=== PATIENT | female | born 1965 | race Caucasian/White ===

== ENCOUNTER 2017-03-15 14:30 | Emergency (ER) | payer MEDICARE, MEDICAID ==
[~2017-03-15] VITALS: Ht 160 cm; Wt 80.0 kg
[~2017-03-15 14:30] MED LIST: BIC15 PO; CLOP75TA33 PO; COR25 PO; Furosemide PO; GABA-529 PO; HYDR-4133 PO; IPRA3AMP9 INH; Isosorbide Mononitrate PO; LIP40 PO; LISI-604 PO; NIFE60TA64 PO
[2017-03-15] MEDS ORDERED: ASPIRIN 81MG TABLET PO ONE (14:45)
[2017-03-15] MEDS ORDERED: NITROGLYCERIN 0.4MG TABLET SL SL PRN (14:45)
[2017-03-15 15:09] LABS: BASOPHILS % 1.2 % (0.0-2.0); EOSINOPHILS % 4.3 % (0.0-5.0); HEMOGLOBIN. 12.1 g/dL (12.0-16.0); LYMPHOCYTES % 19.2 % (20.0-50.0); MEAN CORPUSCULAR HEMOGLOBIN 31.6 pg (28.0-32.0); MEAN CORPUSCULAR VOLUME 91.1 fL (81.0-99.0); MONOCYTES % 8.1 % (2.0-8.0); NEUTROPHILS % 67.2 % (40.0-76.0); PLATELET 255 x1000/uL (130-400); RED BLOOD CELL COUNT 3.84 mill/uL (4.2-5.4); RED CELL DISTRIBUTION WIDTH 13.4 % (11.6-14.6)
[2017-03-15 15:15] LABS: INR 1.1; PROTHROMBIN TIME 11.7 sec
[2017-03-15 15:20] LABS: CARBON DIOXIDE 30 mEq/L (21-32); CHLORIDE 103 mEq/L (98-107)
[2017-03-15 15:24] LABS: TROPONIN I < 0.02 ng/mL (0.00-0.04)
[2017-03-15 20:15] VITALS: BP 141/72
== END 2017-03-15 20:22 | disposition home or self-care (01) ==
LOC: ER 15:16
DX: R07.9 Chest pain, unspecified (principal); I12.0 Hypertensive chronic kidney disease with stage 5 chronic kidney disease or end stage renal disease; N18.6 End stage renal disease; Z86.73 Personal history of transient ischemic attack (TIA), and cerebral infarction without residual deficits; Z99.2 Dependence on renal dialysis; Z88.6 Allergy status to analgesic agent
CPT/HCPCS: 36415; 71010; 80053; 84484; 85025; 85610; 93005; 99285

== ENCOUNTER 2019-10-04 06:41 | Inpatient (IN) | payer MEDICARE, MEDICAID ==
[~2019-10-04] VITALS: Ht 154.9 cm; Wt 79.1 kg
[~2019-10-04 06:41] MED LIST changes: +DUONEB3 ML INH; -IPRA3AMP9 INH
[2019-10-04] MEDS ORDERED: VANCOMYCIN 1 G PREMIX 200 ML IV ONE (07:00)
[2019-10-04] MEDS ORDERED: PIPERACILLIN/TAZ 3.375G PREMIX 50 ML IV ONE (07:00)
[2019-10-04 07:15] LABS: CHLORIDE 106 mEq/L (98-107)
[2019-10-04] MEDS ORDERED: PIPERACILLIN/TAZOBACTAM 3.375 G in DEXT 5% WATER 100 ML IV ONE (07:15)
[2019-10-04] MEDS ORDERED: VECURONIUM BROMIDE 10 MG/VIAL IV ONE (07:26)
[2019-10-04] MEDS ORDERED: SODIUM CHLORIDE 0.9% 10ML VIAL ONE (07:26)
[2019-10-04] MEDS ORDERED: ETOMIDATE 2MG/ML 10ML VIAL IV ONE (07:26)
[2019-10-04 07:29] LABS: HEMATOCRIT. 34.2 % (36.0-48.0); HEMOGLOBIN. 10.9 g/dL (12.0-16.0); MEAN CORPUSCULAR HEMOGLOBIN 30.2 pg (28.0-32.0); MEAN CORPUSCULAR VOLUME 94.5 fL (81.0-99.0); MEAN PLATELET VOLUME 9.6 fl (7.4-10.4); PLATELET 298 x1000/uL (130-400); RED BLOOD CELL COUNT 3.62 mill/uL (4.2-5.4); RED CELL DISTRIBUTION WIDTH 16.4 % (11.6-14.6)
[2019-10-04 07:49] LABS: INR 1.1; PROTHROMBIN TIME 11.6 sec (9.6-11.0)
[2019-10-04 08:13] LABS: CLARITY URINE CLEAR (CLEAR); COLOR URINE YELLOW (YELLOW); KETONES URINE NEGATIVE (NEGATIVE); LEUKOCYTE ESTERASE URINE NEGATIVE (NEGATIVE); NITRITE URINE NEGATIVE (NEGATIVE); OCCULT BLOOD URINE 1+ (NEGATIVE); PROTEIN URINE 3+ (NEGATIVE); SPECIFIC GRAVITY URINE 1.015 (1.005-1.030); UROBILINOGEN URINE 0.2 E.U./dL (0.2-1.0)
[2019-10-04 08:17] LABS: BG BASE EXCESS -5.7 mmol/L (-2.0-2.0); BG CARBOXYHEMOGLOBIN 0.9 % (0.5-1.5); BG DEOXYHEMOGLOBIN 1.4 % (0.0-5.0); BG HCO3 ACT 22.5 mmol/L (22.0-26.0); BG METHEMOGLOBIN 0.1 % (0.0-1.5); BG OXYGEN SATURATION 98.6 % (92.0-98.5); BG OXYHEMOGLOBIN 97.6 % (94.0-97.0); BG PCO2 57.3 mmHg (35.0-45.0); BG PH 7.212 (7.350-7.450); BG PO2 177.8 mmHg (75.0-100.0); BG SAMPLE SITE RIGHT BRACHIAL; BG TIDAL VOLUME(mL) 500 mL; BG VENT MODE VENT - A/C; BG VENT RATE 12 set
[2019-10-04 08:35] LABS: PLATELET ESTIMATE NORMAL
[2019-10-04] MEDS: PROPOFOL 10MG/ML 100ML 100 ML IV SCH ×3 (08:50→19:27)
[2019-10-04] MEDS ORDERED: FENTANYL CITRATE/PF 50MCG/ML 2ML VIAL IV ONE (11:15)
[2019-10-04] MEDS ORDERED: ACETAMINOPHEN 650MG SUPP ONE (16:25)
[2019-10-04] MEDS ORDERED: ACETAMINOPHEN 650MG SUPP PR ONE (18:00)
[2019-10-04] MEDS ORDERED: VANCOMYCIN 1 G PREMIX 200 ML IV SCH (18:45)
[2019-10-04] MEDS ORDERED: CITRIC ACID/SODIUM CITRATE SOLN 15ML UDC PO SCH (18:45)
[2019-10-04 19:22] LABS: BG BASE EXCESS -5.8 mmol/L (-2.0-2.0); BG CARBOXYHEMOGLOBIN 0.2 % (0.5-1.5); BG DEOXYHEMOGLOBIN 6.3 % (0.0-5.0); BG FRACTION INSPIRED OXYGEN 80; BG HCO3 ACT 19.2 mmol/L (22.0-26.0); BG METHEMOGLOBIN 0.3 % (0.0-1.5); BG OXYGEN SATURATION 93.7 % (92.0-98.5); BG OXYHEMOGLOBIN 93.2 % (94.0-97.0); BG PCO2 35.6 mmHg (35.0-45.0); BG PH 7.349 (7.350-7.450); BG PO2 70.6 mmHg (75.0-100.0); BG SAMPLE SITE RIGHT RADIAL; BG TIDAL VOLUME(mL) 500 mL; BG VENT MODE VENT - A/C; BG VENT RATE 14 set
[2019-10-04] MEDS ORDERED: FUROSEMIDE 20MG/2ML VIAL IVP NR (20:15)
[2019-10-04] MEDS ORDERED: PIPERACILLIN/TAZ 3.375G PREMIX 50 ML IV NR (20:15)
[2019-10-04 23:50] VITALS: BP 140/66
[2019-10-05] VITALS (93 sets, daily range): BP systolic 141–190; BP diastolic 56–86
[2019-10-05] MEDS ORDERED: CARVEDILOL 12.5MG TABLET PO NR
[2019-10-05 01:55] LABS: BG BASE EXCESS -6.1 mmol/L (-2.0-2.0); BG CARBOXYHEMOGLOBIN 0.6 % (0.5-1.5); BG DEOXYHEMOGLOBIN 1.8 % (0.0-5.0); BG FRACTION INSPIRED OXYGEN 100; BG HCO3 ACT 19.3 mmol/L (22.0-26.0); BG OXYGEN SATURATION 98.2 % (92.0-98.5); BG OXYHEMOGLOBIN 97.6 % (94.0-97.0); BG PCO2 37.8 mmHg (35.0-45.0); BG PH 7.326 (7.350-7.450); BG SAMPLE SITE RIGHT RADIAL; BG TIDAL VOLUME(mL) 500 mL; BG TOTAL HEMOGLOBIN 9.7 g/dL (12.0-18.0); BG VENT MODE VENT - A/C; BG VENT RATE 20 set
[2019-10-05] MEDS: PROPOFOL 10MG/ML 100ML 100 ML IV PRN ×5 (02:56→17:01)
[2019-10-05] MEDS: PIPERACILLIN/TAZOBACTAM 2.25 G in DEXTROSE 5% WATER 50 ML IV SCH ×2 (03:05→16:55)
[2019-10-05] MEDS: SODIUM CHLORIDE 0.9% INJ 3ML FLUSH IVF SCH ×3 (05:16→22:14)
[2019-10-05] MEDS ORDERED: PIPERACILLIN/TAZ 3.375G PREMIX 50 ML IV SCH (06:00)
[2019-10-05 06:05] LABS: HEMOGLOBIN. 9.1 g/dL (12.0-16.0); MEAN CORPUSCULAR HEMOGLOBIN 30.3 pg (28.0-32.0); MEAN CORPUSCULAR VOLUME 93.8 fL (81.0-99.0); PLATELET 187 x1000/uL (130-400); RED BLOOD CELL COUNT 2.99 mill/uL (4.2-5.4); RED CELL DISTRIBUTION WIDTH 15.9 % (11.6-14.6)
[2019-10-05] MEDS ORDERED: FUROSEMIDE 20MG/2ML VIAL IVP SCH (07:15)
[2019-10-05] MEDS: NITROGLYCERIN 0.2MG/HR PATCH TOP SCH (09:00)
[2019-10-05] MEDS: LISINOPRIL 20MG TABLET PO SCH ×2 (09:00→21:51)
[2019-10-05] MEDS: HYDRALAZINE HCL 10MG TABLET PO SCH ×2 (09:00→21:50)
[2019-10-05] MEDS: NIFEDIPINE XL 90MG TAB PO SCH (09:00)
[2019-10-05 09:27] LABS: PLATELET ESTIMATE NORMAL
[2019-10-05] MEDS: IPRATROPIUM/ALBUTEROL 0.5-3(2.5)MG/3ML NEB HHN PRN ×3 (09:33→16:19)
[2019-10-05] MEDS: PANTOPRAZOLE SODIUM 40 MG/VIAL IV SCH (09:35)
[2019-10-05] MEDS: CLOPIDOGREL 75MG TABLET PO SCH (09:35)
[2019-10-05 12:12] LABS: PHOSPHORUS 6.9 mg/dL (2.5-4.9)
[2019-10-05] MEDS: METHYLPREDNISOLONE SOD SUCC 40 MG/ML VIAL IV SCH ×2 (12:30→22:14)
[2019-10-05] MEDS: ACETAMINOPHEN 650MG/20.3ML UDC PO PRN (13:56)
[2019-10-05] MEDS: CLONIDINE 0.2MG TABLET PO PRN (17:35)
[2019-10-05 18:19] LABS: BG BASE EXCESS -2.9 mmol/L (-2.0-2.0); BG CARBOXYHEMOGLOBIN 0.3 % (0.5-1.5); BG FRACTION INSPIRED OXYGEN 100; BG HCO3 ACT 20.5 mmol/L (22.0-26.0); BG METHEMOGLOBIN 0.1 % (0.0-1.5); BG OXYHEMOGLOBIN 98.6 % (94.0-97.0); BG PCO2 30.9 mmHg (35.0-45.0); BG PH 7.439 (7.350-7.450); BG PO2 196.2 mmHg (75.0-100.0); BG SAMPLE SITE RIGHT BRACHIAL; BG TIDAL VOLUME(mL) 500 mL; BG VENT MODE VENT - A/C; BG VENT RATE 20 set
[2019-10-05 20:26] LABS: *AMPHETAMINES SCREEN URINE NEGATIVE (NEGATIVE); *BARBITURATES SCREEN URINE NEGATIVE (NEGATIVE); *BENZODIAZEPINES SCREEN URINE NEGATIVE (NEGATIVE); *COCAINE SCREEN URINE NEGATIVE (NEGATIVE); METHADONE URINE SCREEN NEGATIVE (NEGATIVE); OPIATES URINE SCREEN NEGATIVE (NEGATIVE)
[2019-10-05 20:27] LABS: CANNABINOID URINE SCREEN NEGATIVE (NEGATIVE); PHENCYCLIDINE URINE SCREEN NEGATIVE (NEGATIVE)
[2019-10-05] MEDS: IPRATROPIUM/ALBUTEROL 0.5-3(2.5)MG/3ML NEB HHN SCH (20:28)
[2019-10-05] MEDS ORDERED: FUROSEMIDE 40MG TABLET PO SCH (21:00)
[2019-10-05] MEDS ORDERED: EPOETIN ALFA 4000UNITS/ML VIAL SUBCUT PRN (21:00)
[2019-10-05] MEDS ORDERED: VANCOMYCIN 1 G PREMIX 200 ML IV SCH (21:00)
[2019-10-05] MEDS: ATORVASTATIN CALCIUM 40MG TABLET PO SCH (21:50)
[2019-10-05] MEDS: GABAPENTIN 100MG CAPSULE PO SCH (21:51)
[2019-10-06] VITALS (93 sets, daily range): BP systolic 160–194; BP diastolic 58–108
[2019-10-06] MEDS: CLONIDINE 0.2MG TABLET PO PRN (00:14)
[2019-10-06] MEDS: PROPOFOL 10MG/ML 100ML 100 ML IV PRN ×3 (01:16→09:59)
[2019-10-06] MEDS: IPRATROPIUM/ALBUTEROL 0.5-3(2.5)MG/3ML NEB HHN SCH ×4 (01:57→20:28)
[2019-10-06] MEDS: PIPERACILLIN/TAZOBACTAM 2.25 G in DEXTROSE 5% WATER 50 ML IV SCH ×2 (02:53→13:54)
[2019-10-06 05:44] LABS: HEMOGLOBIN. 10.5 g/dL (12.0-16.0); MEAN CORPUSCULAR HEMOGLOBIN 31.1 pg (28.0-32.0); MEAN CORPUSCULAR VOLUME 91.7 fL (81.0-99.0); MEAN PLATELET VOLUME 9.6 fl (7.4-10.4); PLATELET 193 x1000/uL (130-400); RED BLOOD CELL COUNT 3.38 mill/uL (4.2-5.4); RED CELL DISTRIBUTION WIDTH 15.8 % (11.6-14.6)
[2019-10-06 05:46] LABS: PHOSPHORUS 7.1 mg/dL (2.5-4.9)
[2019-10-06] MEDS: SODIUM CHLORIDE 0.9% INJ 3ML FLUSH IVF SCH ×3 (06:48→21:59)
[2019-10-06] MEDS: METHYLPREDNISOLONE SOD SUCC 40 MG/ML VIAL IV SCH ×3 (06:48→21:59)
[2019-10-06] MEDS: NIFEDIPINE XL 90MG TAB PO SCH (08:05)
[2019-10-06] MEDS: CLONIDINE HCL 0.2MG/24HR PATCH TD SCH ×3 (08:05→10:00)
[2019-10-06] MEDS: PANTOPRAZOLE SODIUM 40 MG/VIAL IV SCH (08:17)
[2019-10-06] MEDS: CLOPIDOGREL 75MG TABLET PO SCH (08:18)
[2019-10-06] MEDS: HYDRALAZINE HCL 10MG TABLET PO SCH (08:18)
[2019-10-06] MEDS: FOLIC ACID/VITAMIN B COMP W-C TABLET NG SCH (08:18)
[2019-10-06] MEDS: LISINOPRIL 20MG TABLET PO SCH ×2 (08:19→21:58)
[2019-10-06] MEDS: NITROGLYCERIN 0.2MG/HR PATCH TOP SCH (08:19)
[2019-10-06 08:27] LABS: BG BASE EXCESS -10.7 mmol/L (-2.0-2.0); BG CARBOXYHEMOGLOBIN 0.3 % (0.5-1.5); BG DEOXYHEMOGLOBIN 1.8 % (0.0-5.0); BG FRACTION INSPIRED OXYGEN 60; BG HCO3 ACT 11.9 mmol/L (22.0-26.0); BG METHEMOGLOBIN 0.3 % (0.0-1.5); BG OXYGEN SATURATION 98.2 % (92.0-98.5); BG OXYHEMOGLOBIN 97.6 % (94.0-97.0); BG PCO2 18.7 mmHg (35.0-45.0); BG PH 7.422 (7.350-7.450); BG PO2 128.1 mmHg (75.0-100.0); BG SAMPLE SITE RIGHT BRACHIAL; BG TIDAL VOLUME(mL) 500 mL; BG TOTAL HEMOGLOBIN 9.9 g/dL (12.0-18.0); BG VENT MODE VENT - A/C; BG VENT RATE 20 set
[2019-10-06] MEDS ORDERED: ENOXAPARIN 30MG/0.3ML SYR SUBCUT SCH (09:00)
[2019-10-06] MEDS ORDERED: FENTANYL CITRATE/PF 500 MCG in SODIUM CHLORIDE 0.9% 40 ML IV PRN (09:15)
[2019-10-06] MEDS ORDERED: MIDAZOLAM HCL 50 MG in DEXTROSE 5% WATER 40 ML IV PRN (09:15)
[2019-10-06] MEDS ORDERED: HYDRALAZINE HCL 25MG TABLET PO SCH ×2 (10:00→15:00)
[2019-10-06 10:37] LABS: BG BASE EXCESS -4.4 mmol/L (-2.0-2.0); BG CARBOXYHEMOGLOBIN 0.3 % (0.5-1.5); BG DEOXYHEMOGLOBIN 8.3 % (0.0-5.0); BG FRACTION INSPIRED OXYGEN 40; BG HCO3 ACT 20.4 mmol/L (22.0-26.0); BG METHEMOGLOBIN 0.4 % (0.0-1.5); BG OXYGEN SATURATION 91.6 % (92.0-98.5); BG PCO2 36.4 mmHg (35.0-45.0); BG PH 7.366 (7.350-7.450); BG PO2 69.4 mmHg (75.0-100.0); BG PRESSURE SUPPORT 10; BG SAMPLE SITE RIGHT BRACHIAL; BG TIDAL VOLUME(mL) 400 mL; BG TOTAL HEMOGLOBIN 11.8 g/dL (12.0-18.0); BG VENT MODE VENT - SIMV; BG VENT RATE 10 set
[2019-10-06] MEDS: HYDROCODONE/ACETAMINOPHEN 5/325MG TABLET PO PRN (11:16)
[2019-10-06] MEDS ORDERED: LIDOCAINE HCL/PF 1% 2ML VIAL ONE (11:28)
[2019-10-06] MEDS: HYDRALAZINE 20MG/ML VIAL IV PRN (14:09)
[2019-10-06] MEDS ORDERED: MORPHINE SULFATE 2 MG/ML CPJ (NOT FOR IM USE) IV NR (14:45)
[2019-10-06] MEDS ORDERED: MORPHINE SULFATE 2 MG/ML CPJ (NOT FOR IM USE) IV PRN (14:45)
[2019-10-06 14:50] LABS: PLATELET ESTIMATE NORMAL
[2019-10-06] MEDS: MORPHINE SULFATE 2 MG/ML CPJ (NOT FOR IM USE) IV PRN (14:57)
[2019-10-06 17:54] LABS: BG BASE EXCESS -3.8 mmol/L (-2.0-2.0); BG CARBOXYHEMOGLOBIN 0.7 % (0.5-1.5); BG DEOXYHEMOGLOBIN 5.2 % (0.0-5.0); BG FRACTION INSPIRED OXYGEN 35; BG HCO3 ACT 20.9 mmol/L (22.0-26.0); BG METHEMOGLOBIN 0.3 % (0.0-1.5); BG OXYGEN SATURATION 94.7 % (92.0-98.5); BG OXYHEMOGLOBIN 93.8 % (94.0-97.0); BG PCO2 36.8 mmHg (35.0-45.0); BG PH 7.372 (7.350-7.450); BG PO2 78.6 mmHg (75.0-100.0); BG PRESSURE SUPPORT 10; BG SAMPLE SITE RIGHT BRACHIAL; BG TOTAL HEMOGLOBIN 12.1 g/dL (12.0-18.0); BG VENT MODE VENT - CPAP
[2019-10-06] MEDS ORDERED: HYDRALAZINE 20MG/ML VIAL IV NR (18:00)
[2019-10-06 21:27] LABS: BG BASE EXCESS -3.3 mmol/L (-2.0-2.0); BG CARBOXYHEMOGLOBIN 0.6 % (0.5-1.5); BG DEOXYHEMOGLOBIN 6.4 % (0.0-5.0); BG FRACTION INSPIRED OXYGEN 35; BG HCO3 ACT 21.5 mmol/L (22.0-26.0); BG METHEMOGLOBIN 0.3 % (0.0-1.5); BG OXYGEN SATURATION 93.5 % (92.0-98.5); BG OXYHEMOGLOBIN 92.7 % (94.0-97.0); BG PCO2 37.8 mmHg (35.0-45.0); BG PH 7.373 (7.350-7.450); BG PO2 73.2 mmHg (75.0-100.0); BG SAMPLE SITE LEFT RADIAL; BG TOTAL HEMOGLOBIN 12.2 g/dL (12.0-18.0); BG VENT MODE MASK - AEROSOL
[2019-10-06] MEDS: ATORVASTATIN CALCIUM 40MG TABLET PO SCH (21:54)
[2019-10-06] MEDS: HYDRALAZINE HCL 50MG TABLET PO SCH (21:56)
[2019-10-06] MEDS: GABAPENTIN 100MG CAPSULE PO SCH (21:58)
[2019-10-07] VITALS (64 sets, daily range): BP systolic 109–188; BP diastolic 44–101
[2019-10-07] MEDS: IPRATROPIUM/ALBUTEROL 0.5-3(2.5)MG/3ML NEB HHN SCH ×4 (01:15→20:05)
[2019-10-07] MEDS: PIPERACILLIN/TAZOBACTAM 2.25 G in DEXTROSE 5% WATER 50 ML IV SCH ×2 (03:36→14:48)
[2019-10-07] MEDS: HYDRALAZINE 20MG/ML VIAL IV PRN (04:36)
[2019-10-07 05:41] LABS: HEMATOCRIT. 34.2 % (36.0-48.0); MEAN CORPUSCULAR HEMOGLOBIN 29.9 pg (28.0-32.0); MEAN CORPUSCULAR VOLUME 92.8 fL (81.0-99.0); MEAN PLATELET VOLUME 9.5 fl (7.4-10.4); PLATELET 259 x1000/uL (130-400); RED BLOOD CELL COUNT 3.69 mill/uL (4.2-5.4)
[2019-10-07] MEDS: METHYLPREDNISOLONE SOD SUCC 40 MG/ML VIAL IV SCH ×2 (06:33→14:48)
[2019-10-07] MEDS: HYDRALAZINE HCL 50MG TABLET PO SCH ×3 (06:33→21:34)
[2019-10-07] MEDS: SODIUM CHLORIDE 0.9% INJ 3ML FLUSH IVF SCH ×3 (06:34→21:34)
[2019-10-07] MEDS: NIFEDIPINE XL 90MG TAB PO SCH (09:00)
[2019-10-07] MEDS: FOLIC ACID/VITAMIN B COMP W-C TABLET NG SCH (09:17)
[2019-10-07] MEDS: CLOPIDOGREL 75MG TABLET PO SCH (09:17)
[2019-10-07] MEDS: PANTOPRAZOLE SODIUM 40 MG/VIAL IV SCH (09:17)
[2019-10-07] MEDS: LISINOPRIL 20MG TABLET PO SCH ×2 (09:17→21:34)
[2019-10-07 09:28] LABS: BG CARBOXYHEMOGLOBIN 0.6 % (0.5-1.5); BG DEOXYHEMOGLOBIN 4.4 % (0.0-5.0); BG FRACTION INSPIRED OXYGEN 36; BG HCO3 ACT 18.9 mmol/L (22.0-26.0); BG METHEMOGLOBIN 0.3 % (0.0-1.5); BG OXYGEN SATURATION 95.6 % (92.0-98.5); BG OXYHEMOGLOBIN 94.7 % (94.0-97.0); BG PCO2 35.1 mmHg (35.0-45.0); BG PH 7.349 (7.350-7.450); BG PO2 87.8 mmHg (75.0-100.0); BG SAMPLE SITE RIGHT RADIAL; BG TOTAL HEMOGLOBIN 11.1 g/dL (12.0-18.0); BG VENT MODE NASAL CANNULA
[2019-10-07 09:47] LABS: PLATELET ESTIMATE NORMAL
[2019-10-07] MEDS: NITROGLYCERIN 0.2MG/HR PATCH TOP SCH (09:59)
[2019-10-07] MEDS ORDERED: HYDRALAZINE 20MG/ML VIAL IV NR (10:00)
[2019-10-07] MEDS: BLOOD SUGAR DIAGNOSTIC STRIP TEST SCH ×4 (12:02→20:56)
[2019-10-07] MEDS: AMLODIPINE 5MG TABLET PO SCH (12:15)
[2019-10-07] MEDS ORDERED: HEPARIN SODIUM 1,000 UNIT/1ML VIAL IV SCH (13:30)
[2019-10-07] MEDS: ACETAMINOPHEN 650MG/20.3ML UDC PO PRN (17:09)
[2019-10-07] MEDS ORDERED: DEXTROSE 50% WATER 50ML SYRINGE IV PRN ×2 (17:45→18:00)
[2019-10-07] MEDS ORDERED: INSULIN LISPRO 100 UNITS/ML SUBCUT SCH (17:45)
[2019-10-07] MEDS ORDERED: BLOOD SUGAR DIAGNOSTIC STRIP TEST SCH (21:00)
[2019-10-07] MEDS: GABAPENTIN 100MG CAPSULE PO SCH (21:33)
[2019-10-07] MEDS: ATORVASTATIN CALCIUM 40MG TABLET PO SCH (21:33)
[2019-10-07] MEDS: INSULIN LISPRO 100 UNITS/ML SUBCUT SCH (21:35)
[2019-10-07] MEDS ORDERED: INSULIN GLARGINE UD 100 UNITS/ML SYR SUBCUT SCH (22:00)
[2019-10-08] VITALS (23 sets, daily range): BP systolic 98–165; BP diastolic 53–140
[2019-10-08] MEDS: METHYLPREDNISOLONE SOD SUCC 40 MG/ML VIAL IV SCH ×2 (00:57→14:25)
[2019-10-08] MEDS: PIPERACILLIN/TAZOBACTAM 2.25 G in DEXTROSE 5% WATER 50 ML IV SCH ×2 (01:00→14:25)
[2019-10-08] MEDS: IPRATROPIUM/ALBUTEROL 0.5-3(2.5)MG/3ML NEB HHN SCH ×4 (02:03→19:54)
[2019-10-08] MEDS: SODIUM CHLORIDE 0.9% INJ 3ML FLUSH IVF SCH ×2 (05:13→14:25)
[2019-10-08] MEDS: BLOOD SUGAR DIAGNOSTIC STRIP TEST SCH ×4 (06:04→21:00)
[2019-10-08] MEDS: INSULIN LISPRO 100 UNITS/ML SUBCUT SCH ×4 (06:10→21:00)
[2019-10-08] MEDS: MORPHINE SULFATE 2 MG/ML CPJ (NOT FOR IM USE) IV PRN (06:10)
[2019-10-08] MEDS: HYDRALAZINE HCL 50MG TABLET PO SCH ×2 (06:10→14:00)
[2019-10-08] MEDS: SEVELAMER CARBONATE 800 MG TABLET PO SCH ×3 (06:11→16:58)
[2019-10-08 06:12] LABS: HEMATOCRIT. 36.4 % (36.0-48.0); HEMOGLOBIN. 11.8 g/dL (12.0-16.0); MEAN CORPUSCULAR HEMOGLOBIN 30.3 pg (28.0-32.0); MEAN CORPUSCULAR VOLUME 93.2 fL (81.0-99.0); MEAN PLATELET VOLUME 9.6 fl (7.4-10.4); PLATELET 240 x1000/uL (130-400); RED CELL DISTRIBUTION WIDTH 15.6 % (11.6-14.6)
[2019-10-08] MEDS ORDERED: PAROXETINE HCL 10MG TABLET PO SCH (09:00)
[2019-10-08] MEDS: NIFEDIPINE XL 90MG TAB PO SCH (09:00)
[2019-10-08] MEDS: CLOPIDOGREL 75MG TABLET PO SCH (09:09)
[2019-10-08] MEDS: PANTOPRAZOLE SODIUM 40 MG/VIAL IV SCH (09:09)
[2019-10-08] MEDS: LISINOPRIL 20MG TABLET PO SCH ×2 (09:10→21:00)
[2019-10-08] MEDS: FOLIC ACID/VITAMIN B COMP W-C TABLET NG SCH (09:10)
[2019-10-08 09:32] LABS: BG BASE EXCESS -7.1 mmol/L (-2.0-2.0); BG CARBOXYHEMOGLOBIN 1.4 % (0.5-1.5); BG DEOXYHEMOGLOBIN 4.4 % (0.0-5.0); BG FRACTION INSPIRED OXYGEN 28; BG HCO3 ACT 17.2 mmol/L (22.0-26.0); BG METHEMOGLOBIN 0.1 % (0.0-1.5); BG OXYGEN SATURATION 95.5 % (92.0-98.5); BG OXYHEMOGLOBIN 94.1 % (94.0-97.0); BG PCO2 30.7 mmHg (35.0-45.0); BG PH 7.365 (7.350-7.450); BG PO2 82.3 mmHg (75.0-100.0); BG SAMPLE SITE RIGHT RADIAL; BG TOTAL HEMOGLOBIN 11.7 g/dL (12.0-18.0); BG VENT MODE NASAL CANNULA
[2019-10-08] MEDS: HYDROCODONE/ACETAMINOPHEN 5/325MG TABLET PO PRN (10:31)
[2019-10-08 11:10] LABS: PLATELET ESTIMATE NORMAL
[2019-10-08] MEDS: AMLODIPINE 5MG TABLET PO SCH (11:27)
[2019-10-08] MEDS: NITROGLYCERIN 0.2MG/HR PATCH TOP SCH (11:28)
[2019-10-08] MEDS: CLONIDINE HCL 0.2MG/24HR PATCH TD SCH (11:28)
[2019-10-08] MEDS ORDERED: LISI-604 MT (13:42)
[2019-10-08] MEDS ORDERED: LEVO500T2 PO (13:42)
[2019-10-08] MEDS ORDERED: P20 MT (13:42)
[2019-10-08] MEDS ORDERED: ALBU05 NEB (13:42)
[2019-10-08] MEDS ORDERED: NIFE90TA2 MT (13:42)
[2019-10-08] MEDS ORDERED: AMLO5TAB4 PO (13:42)
[2019-10-08] MEDS ORDERED: HYDR-4135 MT (13:42)
[2019-10-08] MEDS ORDERED: CLOP75TA4 MT (13:42)
[2019-10-08] MEDS ORDERED: COR3 MT (13:42)
[2019-10-08 14:29] LABS: BG BASE EXCESS -4.9 mmol/L (-2.0-2.0); BG CARBOXYHEMOGLOBIN 1.1 % (0.5-1.5); BG DEOXYHEMOGLOBIN 14.6 % (0.0-5.0); BG FRACTION INSPIRED OXYGEN 21; BG HCO3 ACT 20.1 mmol/L (22.0-26.0); BG OXYGEN SATURATION 85.2 % (92.0-98.5); BG OXYHEMOGLOBIN 84.3 % (94.0-97.0); BG PCO2 36.9 mmHg (35.0-45.0); BG PH 7.354 (7.350-7.450); BG SAMPLE SITE RIGHT RADIAL; BG TOTAL HEMOGLOBIN 12.4 g/dL (12.0-18.0); BG VENT MODE ROOM AIR
[2019-10-08] MEDS: GABAPENTIN 100MG CAPSULE PO SCH (21:00)
[2019-10-08] MEDS: ATORVASTATIN CALCIUM 40MG TABLET PO SCH (21:00)
== END 2019-10-08 20:40 | disposition home health service (06) | DRG 208 ==
LOC: ER 07:09 → EDBEDREQTM 09:38 → EDBEDREQ 09:38 → ENRESERV 23:03 → MICUNO 23:43
PROVIDERS: ADMIT Internal Medicine; ATTEND Internal Medicine
PROC: 5A1945Z Respiratory Ventilation, 24-96 Consecutive Hours (ICD-10-PCS; principal; 2019-10-04)
PROC: 0BH17EZ Insertion of Endotracheal Airway into Trachea, Via Natural or Artificial Opening (ICD-10-PCS; 2019-10-04)
PROC: 5A09357 Assistance with Respiratory Ventilation, Less than 24 Consecutive Hours, Continuous Positive Airway Pressure (ICD-10-PCS; 2019-10-04)
PROC: 5A1D70Z Performance of Urinary Filtration, Intermittent, Less than 6 Hours Per Day (ICD-10-PCS; 2019-10-05)
PROC: 5A1D70Z Performance of Urinary Filtration, Intermittent, Less than 6 Hours Per Day (ICD-10-PCS; 2019-10-07)
DX: J96.01 Acute respiratory failure with hypoxia (principal); N18.6 End stage renal disease; G92 Toxic encephalopathy; J69.0 Pneumonitis due to inhalation of food and vomit; N39.0 Urinary tract infection, site not specified; I13.2 Hypertensive heart and chronic kidney disease with heart failure and with stage 5 chronic kidney disease, or end stage renal disease; I50.30 Unspecified diastolic (congestive) heart failure; I42.9 Cardiomyopathy, unspecified; N17.9 Acute kidney failure, unspecified; D63.1 Anemia in chronic kidney disease; E11.22 Type 2 diabetes mellitus with diabetic chronic kidney disease; E78.5 Hyperlipidemia, unspecified; D72.829 Elevated white blood cell count, unspecified; E11.319 Type 2 diabetes mellitus with unspecified diabetic retinopathy without macular edema; E11.51 Type 2 diabetes mellitus with diabetic peripheral angiopathy without gangrene; R59.0 Localized enlarged lymph nodes; E21.1 Secondary hyperparathyroidism, not elsewhere classified; F41.9 Anxiety disorder, unspecified; F32.9 Major depressive disorder, single episode, unspecified; H54.8 Legal blindness, as defined in USA; J44.9 Chronic obstructive pulmonary disease, unspecified; Z79.02 Long term (current) use of antithrombotics/antiplatelets; Z91.19 Patient's noncompliance with other medical treatment and regimen; Z99.2 Dependence on renal dialysis; Z88.6 Allergy status to analgesic agent; Z79.899 Other long term (current) drug therapy; Z78.1 Physical restraint status
CPT/HCPCS: 36415; 36600; 71045; 71250; 78580; 80048; 80053; 80061; 80202; 80305; 81003; 82140; 82375; 82805; 82962; 83036; 83605; 83735; 83880; 84100; 84145; 84443; 84478; 84484; 85025; 86850; 86900; 87070; 87804; 92610; 93005; 93306; 94002; 94003; 94640; 94660; 97162; 97530; 99291; C9113; J0360; J0885; J1644; J1815; J2250; J2270; J2543; J2704; J2920; J3010; J3370; J3490; J7060

== ENCOUNTER 2021-04-07 19:09 | Inpatient (IN) | payer MEDICARE, MEDICAID ==
[~2021-04-07] VITALS: Ht 167.6 cm; Wt 76.7 kg
[~2021-04-07 19:09] MED LIST changes: +ALBU05 NEB; +AMLO5TAB4 PO; +CLOP75TA4 MT; -COR25 PO; +COR3 MT; -DUONEB3 ML INH; -Furosemide PO; -HYDR-4133 PO; +HYDR-4135 MT; -Isosorbide Mononitrate PO; +LEVO500T2 PO; -LISI-604 PO; +LISI20TA31 MT; +LISI20TA31 PO; +NIFE90TA2 MT; +P20 MT
[2021-04-07 20:54] LABS: BASOPHILS % 0.6 % (0.0-2.0); EOSINOPHILS % 1.9 % (0.0-5.0); HEMATOCRIT. 30.1 % (36.0-48.0); HEMOGLOBIN. 9.9 g/dL (12.0-16.0); MEAN CORPUSCULAR HEMOGLOBIN 29.1 pg (28.0-32.0); MEAN CORPUSCULAR VOLUME 88.6 fL (81.0-99.0); MEAN PLATELET VOLUME 9.6 fl (7.4-10.4); MONOCYTES % 7.6 % (2.0-8.0); NEUTROPHILS % 77.9 % (40.0-76.0); PLATELET 145 x1000/uL (130-400); RED CELL DISTRIBUTION WIDTH 15.7 % (11.6-14.6)
[2021-04-07 20:56] LABS: CHLORIDE 100 mEq/L (98-107)
[2021-04-08] MEDS ORDERED: HYDROCODONE/ACETAMINOPHEN 10/325MG TABLET PO PRN (05:30)
[2021-04-08] MEDS ORDERED: PAROXETINE HCL 10MG TABLET PO PRN (05:30)
[2021-04-08] MEDS ORDERED: BACLOFEN 10MG TABLET PO PRN (05:30)
[2021-04-08] MEDS ORDERED: NALOXONE HCL 0.4MG/ML VIAL IV PRN (05:30)
[2021-04-08] MEDS ORDERED: ACETAMINOPHEN 325MG TABLET PO PRN (10:30)
[2021-04-08] MEDS ORDERED: DEXTROSE 50% WATER 50ML SYRINGE IV PRN (10:30)
[2021-04-08] MEDS ORDERED: ONDANSETRON HCL 4MG/2ML INJ IV PRN (10:30)
[2021-04-08] MEDS: AMLODIPINE 10MG TABLET PO SCH (11:52)
[2021-04-08] MEDS: BLOOD SUGAR DIAGNOSTIC STRIP TEST SCH ×3 (13:00→20:29)
[2021-04-08] MEDS: INSULIN LISPRO 100 UNITS/ML SUBCUT SCH ×3 (13:20→21:00)
[2021-04-08 16:00] VITALS: BP 161/53
[2021-04-08 19:32] VITALS: BP 161/53
[2021-04-08 20:00] VITALS: BP 148/63
[2021-04-09] VITALS: BP 168/55
[2021-04-09 04:00] VITALS: BP 147/55
[2021-04-09] MEDS: BLOOD SUGAR DIAGNOSTIC STRIP TEST SCH (06:29)
[2021-04-09 06:36] LABS: BASOPHILS % 0.7 % (0.0-2.0); EOSINOPHILS % 2.9 % (0.0-5.0); HEMATOCRIT. 31.3 % (36.0-48.0); LYMPHOCYTES % 19.2 % (20.0-50.0); MEAN CORPUSCULAR HEMOGLOBIN 28.6 pg (28.0-32.0); MEAN CORPUSCULAR VOLUME 89.7 fL (81.0-99.0); MEAN PLATELET VOLUME 10.3 fl (7.4-10.4); NEUTROPHILS % 68.2 % (40.0-76.0); PLATELET 142 x1000/uL (130-400); RED BLOOD CELL COUNT 3.49 mill/uL (4.2-5.4); RED CELL DISTRIBUTION WIDTH 15.5 % (11.6-14.6)
[2021-04-09] MEDS: INSULIN LISPRO 100 UNITS/ML SUBCUT SCH (07:42)
[2021-04-09 08:00] VITALS: BP 122/65
[2021-04-09] MEDS: AMLODIPINE 10MG TABLET PO SCH (08:21)
[2021-04-09] MEDS ORDERED: LOSARTAN POTASSIUM 100 MG TABLET PO SCH (09:00)
[2021-04-09 10:19] VITALS: BP 125/42
[2021-04-09 12:00] VITALS: BP 130/49
== END 2021-04-09 13:10 | disposition home or self-care (01) | DRG 551 ==
LOC: ER 19:26 → EDBEDREQTM 04-08 02:30 → EDBEDREQDT 04-08 02:30 → EDBEDREQ 04-08 02:30 → MICUSO 04-08 10:26 → 6EST 04-08 15:58
PROVIDERS: ADMIT Internal Medicine; ATTEND Internal Medicine
DX: M51.36 Other intervertebral disc degeneration, lumbar region (principal); N18.6 End stage renal disease; I12.0 Hypertensive chronic kidney disease with stage 5 chronic kidney disease or end stage renal disease; N25.81 Secondary hyperparathyroidism of renal origin; M54.41 Lumbago with sciatica, right side; M54.42 Lumbago with sciatica, left side; M48.061 Spinal stenosis, lumbar region without neurogenic claudication; E11.22 Type 2 diabetes mellitus with diabetic chronic kidney disease; G89.29 Other chronic pain; E11.319 Type 2 diabetes mellitus with unspecified diabetic retinopathy without macular edema; H93.A1 Pulsatile tinnitus, right ear; E11.42 Type 2 diabetes mellitus with diabetic polyneuropathy; E78.5 Hyperlipidemia, unspecified; F32.9 Major depressive disorder, single episode, unspecified; D63.8 Anemia in other chronic diseases classified elsewhere; Z99.2 Dependence on renal dialysis; Z86.73 Personal history of transient ischemic attack (TIA), and cerebral infarction without residual deficits; Z88.8 Allergy status to other drugs, medicaments and biological substances; Z79.899 Other long term (current) drug therapy; H54.7 Unspecified visual loss
CPT/HCPCS: 36415; 70551; 71045; 72141; 72148; 80048; 80053; 82962; 83880; 84484; 85025; 93005; 99285

== ENCOUNTER 2021-05-24 17:38 | Inpatient (IN) | payer MEDICARE, MEDICAID ==
[~2021-05-24] VITALS: Ht 165.1 cm; Wt 72.6 kg
[~2021-05-24 17:38] MED LIST changes: +CLOP-31 MT; -CLOP75TA4 MT
[2021-05-24 23:06] LABS: BASOPHILS % 0.7 % (0.0-2.0); EOSINOPHILS % 2.7 % (0.0-5.0); HEMATOCRIT. 21.7 % (36.0-48.0); LYMPHOCYTES % 13.5 % (20.0-50.0); MEAN CORPUSCULAR HEMOGLOBIN 31.7 pg (28.0-32.0); MEAN CORPUSCULAR VOLUME 98.4 fL (81.0-99.0); MEAN PLATELET VOLUME 9.5 fl (7.4-10.4); NEUTROPHILS % 74.1 % (40.0-76.0); PLATELET 205 x1000/uL (130-400); RED BLOOD CELL COUNT 2.21 mill/uL (4.2-5.4); RED CELL DISTRIBUTION WIDTH 15.7 % (11.6-14.6)
[2021-05-24 23:13] LABS: CHLORIDE 108 mEq/L (98-107)
[2021-05-24 23:15] LABS: INR 1.1; PROTHROMBIN TIME 11.6 sec (9.6-11.0)
[2021-05-25] VITALS (8 sets, daily range): BP systolic 157–175; BP diastolic 41–69
[2021-05-25] MEDS ORDERED: ONDANSETRON HCL 4MG/2ML INJ IV PRN (00:45)
[2021-05-25] MEDS ORDERED: ACETAMINOPHEN 325MG TABLET PO PRN (00:45)
[2021-05-25] MEDS: CARVEDILOL 3.125 MG TABLET PO SCH ×2 (03:25→21:03)
[2021-05-25] MEDS: HYDRALAZINE HCL 50MG TABLET PO SCH ×3 (03:26→21:04)
[2021-05-25] MEDS: ACETAMINOPHEN 325MG TABLET PO PRN ×2 (03:26→13:18)
[2021-05-25] MEDS ORDERED: AMLODIPINE 5MG TABLET PO NR (04:30)
[2021-05-25] MEDS ORDERED: HYDRALAZINE HCL 25MG TABLET PO PRN (07:45)
[2021-05-25] MEDS: LISINOPRIL 20MG TABLET PO SCH ×2 (08:56→21:03)
[2021-05-25] MEDS: CLOPIDOGREL 75MG TABLET PO SCH (08:56)
[2021-05-25] MEDS: CITRIC ACID/SODIUM CITRATE SOLN 15ML UDC PO SCH ×3 (08:57→18:54)
[2021-05-25] MEDS ORDERED: NIFEDIPINE XL 60MG TAB PO SCH (09:00)
[2021-05-25 10:33] LABS: BASOPHILS % 0.8 % (0.0-2.0); EOSINOPHILS % 3.2 % (0.0-5.0); LYMPHOCYTES % 15.8 % (20.0-50.0); MEAN CORPUSCULAR HEMOGLOBIN 31.5 pg (28.0-32.0); MEAN CORPUSCULAR VOLUME 94.5 fL (81.0-99.0); MEAN PLATELET VOLUME 9.5 fl (7.4-10.4); MONOCYTES % 7.7 % (2.0-8.0); NEUTROPHILS % 72.5 % (40.0-76.0); PLATELET 196 x1000/uL (130-400); RED BLOOD CELL COUNT 2.55 mill/uL (4.2-5.4); RED CELL DISTRIBUTION WIDTH 17.3 % (11.6-14.6)
[2021-05-25 10:41] LABS: CHLORIDE 109 mEq/L (98-107)
[2021-05-25 10:50] LABS: PHOSPHORUS 6.7 mg/dL (2.5-4.9)
[2021-05-25 18:19] LABS: HEPATITIS B SURFACE ANTIGEN NEGATIVE
[2021-05-25] MEDS ORDERED: GABAPENTIN 100MG CAPSULE PO SCH (21:00)
[2021-05-25] MEDS ORDERED: EPOETIN ALFA-EPBX 10,000 UNIT/ML VIAL SUBCUT SCH (21:00)
[2021-05-25] MEDS ORDERED: ATORVASTATIN CALCIUM 40MG TABLET PO SCH (21:00)
[2021-05-26] VITALS: BP 146/58
[2021-05-26 04:00] VITALS: BP 153/59
[2021-05-26] MEDS: HYDRALAZINE HCL 50MG TABLET PO SCH ×2 (05:57→14:19)
[2021-05-26 08:00] VITALS: BP 159/63
[2021-05-26] MEDS: CITRIC ACID/SODIUM CITRATE SOLN 15ML UDC PO SCH ×2 (08:54→14:16)
[2021-05-26] MEDS: CLOPIDOGREL 75MG TABLET PO SCH (08:54)
[2021-05-26] MEDS: LISINOPRIL 20MG TABLET PO SCH (08:55)
[2021-05-26] MEDS: CARVEDILOL 3.125 MG TABLET PO SCH (08:55)
[2021-05-26] MEDS ORDERED: AMLODIPINE 5MG TABLET PO SCH (09:00)
[2021-05-26 12:00] VITALS: BP 159/57
[2021-05-26 16:00] VITALS: BP 127/51
[2021-05-26 17:35] LABS: CHLORIDE 104 mEq/L (98-107)
[2021-05-26 17:40] LABS: BASOPHILS % 0.7 % (0.0-2.0); EOSINOPHILS % 2.5 % (0.0-5.0); HEMATOCRIT. 26.6 % (36.0-48.0); HEMOGLOBIN. 8.9 g/dL (12.0-16.0); LYMPHOCYTES % 12.8 % (20.0-50.0); MEAN CORPUSCULAR HEMOGLOBIN 31.4 pg (28.0-32.0); MEAN CORPUSCULAR VOLUME 93.2 fL (81.0-99.0); MEAN PLATELET VOLUME 9.7 fl (7.4-10.4); MONOCYTES % 8.9 % (2.0-8.0); NEUTROPHILS % 75.1 % (40.0-76.0); PLATELET 217 x1000/uL (130-400); RED BLOOD CELL COUNT 2.85 mill/uL (4.2-5.4)
[2021-05-26 17:48] LABS: PHOSPHORUS 5.9 mg/dL (2.5-4.9)
[2021-05-26 18:29] VITALS: BP 127/51
== END 2021-05-26 20:09 | disposition home or self-care (01) | DRG 682 ==
LOC: ER 17:38 → SUPCPDRO 23:59 → MICUSO 05-25 00:31 → 6EST 05-25 01:27
PROVIDERS: ADMIT Internal Medicine; ATTEND Internal Medicine
PROC: 30233N1 Transfusion of Nonautologous Red Blood Cells into Peripheral Vein, Percutaneous Approach (ICD-10-PCS; principal; 2021-05-25)
PROC: 5A1D70Z Performance of Urinary Filtration, Intermittent, Less than 6 Hours Per Day (ICD-10-PCS; 2021-05-25)
DX: I12.0 Hypertensive chronic kidney disease with stage 5 chronic kidney disease or end stage renal disease (principal); N18.6 End stage renal disease; N25.81 Secondary hyperparathyroidism of renal origin; E78.5 Hyperlipidemia, unspecified; G89.29 Other chronic pain; D63.8 Anemia in other chronic diseases classified elsewhere; F32.9 Major depressive disorder, single episode, unspecified; M51.36 Other intervertebral disc degeneration, lumbar region; E11.22 Type 2 diabetes mellitus with diabetic chronic kidney disease; I25.2 Old myocardial infarction; Z86.73 Personal history of transient ischemic attack (TIA), and cerebral infarction without residual deficits; Z79.899 Other long term (current) drug therapy; Z79.82 Long term (current) use of aspirin; Z79.51 Long term (current) use of inhaled steroids; Z88.6 Allergy status to analgesic agent; Z99.2 Dependence on renal dialysis
CPT/HCPCS: 36415; 71045; 80053; 83735; 83880; 84100; 84484; 85025; 86705; 86709; 86803; 86850; 86900; 86920; 87340; 93005; 99285; J0885; J7040; P9016

== ENCOUNTER 2021-08-28 14:29 | Inpatient (IN) | payer MEDICARE, MEDICAID ==
[~2021-08-28] VITALS: Ht 160 cm; Wt 77.1 kg
[~2021-08-28 14:29] MED LIST changes: -CLOP-31 MT; -LEVO500T2 PO; -LISI20TA31 MT; -NIFE90TA2 MT; -P20 MT
[2021-08-28] MEDS ORDERED: PANTOPRAZOLE SODIUM 40 MG/VIAL IV STA (15:41)
[2021-08-28 16:31] LABS: HEMATOCRIT. 40.5 % (36.0-48.0); HEMOGLOBIN. 12.5 g/dL (12.0-16.0); MEAN CORPUSCULAR HEMOGLOBIN 29.1 pg (28.0-32.0); MEAN CORPUSCULAR VOLUME 94.4 fL (81.0-99.0); PLATELET 233 x1000/uL (130-400); RED BLOOD CELL COUNT 4.29 mill/uL (4.2-5.4); RED CELL DISTRIBUTION WIDTH 16.3 % (11.6-14.6)
[2021-08-28 16:35] LABS: CHLORIDE 113 mEq/L (98-107)
[2021-08-28 16:39] LABS: ETHANOL BLOOD < 10 mg/dL
[2021-08-28 16:48] LABS: PROTHROMBIN TIME 11.1 sec (9.6-11.0)
[2021-08-28 17:03] LABS: PLATELET ESTIMATE NORMAL
[2021-08-28] MEDS ORDERED: IOHEXOL-350 100 ML BOTTLE ONE (17:10)
[2021-08-28] MEDS ORDERED: FUROSEMIDE 100MG/10ML VIAL IV STA (17:34)
[2021-08-28] MEDS ORDERED: SODIUM BICARBONATE 8.4% 1 MEQ/ML 50ML SYR IV ONE (17:45)
[2021-08-28] MEDS ORDERED: CALCIUM CHLORIDE 1GM/10ML SYR IV ONE (17:45)
[2021-08-28] MEDS ORDERED: INSULIN REGULAR (HUMULIN R) 300UNITS/3ML VIAL IV ONE (17:45)
[2021-08-28] MEDS ORDERED: SODIUM POLYSTYRENE SULFONATE 15 G/60 ML BOT PO ONE (17:45)
[2021-08-28] MEDS ORDERED: ALBUTEROL (0.083%) 2.5MG/3ML NEB HHN ONE (17:45)
[2021-08-28] MEDS ORDERED: DEXTROSE 50% WATER 50ML SYRINGE IV ONE ×2 (17:45→21:30)
[2021-08-28 20:28] LABS: CLARITY URINE CLEAR (CLEAR); COLOR URINE YELLOW (YELLOW); KETONES URINE NEGATIVE (NEGATIVE); LEUKOCYTE ESTERASE URINE NEGATIVE (NEGATIVE); NITRITE URINE NEGATIVE (NEGATIVE); OCCULT BLOOD URINE 1+ (NEGATIVE); PH URINE 7.5 (4.5-8.0); PROTEIN URINE 3+ (NEGATIVE); SPECIFIC GRAVITY URINE 1.014 (1.005-1.030); UROBILINOGEN URINE 0.2 E.U./dL (0.2-1.0)
[2021-08-28 20:48] LABS: *AMPHETAMINES SCREEN URINE NEGATIVE (NEGATIVE); *BARBITURATES SCREEN URINE NEGATIVE (NEGATIVE); *BENZODIAZEPINES SCREEN URINE NEGATIVE (NEGATIVE); *COCAINE SCREEN URINE NEGATIVE (NEGATIVE)
[2021-08-28 20:49] LABS: CANNABINOID URINE SCREEN NEGATIVE (NEGATIVE); METHADONE URINE SCREEN NEGATIVE (NEGATIVE); OPIATES URINE SCREEN NEGATIVE (NEGATIVE); PHENCYCLIDINE URINE SCREEN NEGATIVE (NEGATIVE)
[2021-08-28] MEDS ORDERED: ONDANSETRON HCL 4MG/2ML INJ IV PRN (21:00)
[2021-08-28] MEDS ORDERED: DIPHENHYDRAMINE 50MG/ML VIAL IV PRN (21:00)
[2021-08-28] MEDS ORDERED: MAGNESIUM/ALUMINUM HYDROXIDE/SIMETHICONE 30ML UDC PO PRN (21:00)
[2021-08-28 23:07] LABS: HEPATITIS B SURFACE ANTIGEN NEGATIVE
[2021-08-29] MEDS: INSULIN LISPRO (HIGH DOSE) 100 UNITS/ML SUBCUT SCH ×4 (06:00→21:00)
[2021-08-29] MEDS ORDERED: DEXTROSE 50% WATER 50ML SYRINGE IV PRN (06:15)
[2021-08-29 06:48] LABS: CHLORIDE 115 mEq/L (98-107)
[2021-08-29 06:57] LABS: HEMATOCRIT. 37.2 % (36.0-48.0); HEMOGLOBIN. 11.5 g/dL (12.0-16.0); MEAN CORPUSCULAR HEMOGLOBIN 29.3 pg (28.0-32.0); MEAN CORPUSCULAR VOLUME 94.8 fL (81.0-99.0); MEAN PLATELET VOLUME 10.5 fl (7.4-10.4); PLATELET 218 x1000/uL (130-400); RED BLOOD CELL COUNT 3.93 mill/uL (4.2-5.4); RED CELL DISTRIBUTION WIDTH 16.4 % (11.6-14.6)
[2021-08-29] MEDS: BLOOD SUGAR DIAGNOSTIC STRIP TEST SCH ×4 (06:58→21:38)
[2021-08-29] MEDS ORDERED: SODIUM POLYSTYRENE SULFONATE 15 G/60 ML BOT PO NR ×2 (09:00→15:30)
[2021-08-29] MEDS ORDERED: HYDRALAZINE 20MG/ML VIAL IV PRN (10:00)
[2021-08-29 10:53] VITALS: BP 187/109
[2021-08-29 12:14] VITALS: BP 153/83
[2021-08-29 15:26] LABS: HEMATOCRIT. 37.5 % (36.0-48.0); MEAN CORPUSCULAR HEMOGLOBIN 29.6 pg (28.0-32.0); MEAN CORPUSCULAR VOLUME 92.1 fL (81.0-99.0); MEAN PLATELET VOLUME 9.8 fl (7.4-10.4); PLATELET 219 x1000/uL (130-400); RED BLOOD CELL COUNT 4.07 mill/uL (4.2-5.4); RED CELL DISTRIBUTION WIDTH 16.4 % (11.6-14.6)
[2021-08-29 15:32] LABS: CHLORIDE 111 mEq/L (98-107)
[2021-08-29 16:00] VITALS: BP 135/69
[2021-08-29 17:08] LABS: PLATELET ESTIMATE NORMAL
[2021-08-29 17:16] LABS: PLATELET ESTIMATE NORMAL
[2021-08-29 20:00] VITALS: BP 146/69
[2021-08-30] VITALS: BP 165/63
[2021-08-30] MEDS: CLONIDINE 0.1MG TABLET PO PRN (00:40)
[2021-08-30] MEDS: ACETAMINOPHEN 325MG TABLET PO PRN (00:41)
[2021-08-30 04:00] VITALS: BP 158/70
[2021-08-30] MEDS: INSULIN LISPRO (HIGH DOSE) 100 UNITS/ML SUBCUT SCH ×4 (06:38→20:16)
[2021-08-30] MEDS: BLOOD SUGAR DIAGNOSTIC STRIP TEST SCH ×4 (06:38→20:16)
[2021-08-30 08:00] VITALS: BP 145/58
[2021-08-30] MEDS: AMLODIPINE 10MG TABLET PO SCH ×2 (08:55→09:00)
[2021-08-30] MEDS ORDERED: PNEUMOCOCCAL 23-VAL P-SAC VAC 0.5 ML IM ONE (09:00)
[2021-08-30 12:00] VITALS: BP 148/58
[2021-08-30 16:00] VITALS: BP 149/67
[2021-08-30 20:00] VITALS: BP 124/64
[2021-08-31] VITALS: BP 154/69
[2021-08-31] MEDS: ACETAMINOPHEN 325MG TABLET PO PRN (00:25)
[2021-08-31 04:00] VITALS: BP 150/74
[2021-08-31] MEDS: INSULIN LISPRO (HIGH DOSE) 100 UNITS/ML SUBCUT SCH ×2 (06:15→12:32)
[2021-08-31] MEDS: BLOOD SUGAR DIAGNOSTIC STRIP TEST SCH ×2 (06:15→12:30)
[2021-08-31] MEDS: CLONIDINE 0.1MG TABLET PO PRN (07:37)
[2021-08-31 08:00] VITALS: BP 200/83
[2021-08-31] MEDS ORDERED: HYDRALAZINE HCL 50MG TABLET PO SCH (08:00)
[2021-08-31] MEDS: AMLODIPINE 10MG TABLET PO SCH (08:10)
[2021-08-31] MEDS ORDERED: HYDRALAZINE HCL 50MG TABLET PO NR (10:45)
[2021-08-31 12:00] VITALS: BP 130/73
[2021-08-31] MEDS ORDERED: HYDRALAZINE HCL 100MG TABLET PO SCH (14:00)
[2021-08-31 15:53] VITALS: BP 153/68
== END 2021-08-31 14:30 | disposition home or self-care (01) | DRG 70 ==
LOC: ER 14:29 → MICUSO 19:03 → CANRESERV 23:15 → ENRESERV 23:15 → EDBEDREQTM 08-29 00:05 → EDBEDREQSVC 08-29 00:05 → 7EST 08-29 09:35
PROVIDERS: ADMIT Hospitalist; ATTEND Hospitalist
PROC: 5A1D70Z Performance of Urinary Filtration, Intermittent, Less than 6 Hours Per Day (ICD-10-PCS; principal; 2021-08-28)
PROC: 5A1D70Z Performance of Urinary Filtration, Intermittent, Less than 6 Hours Per Day (ICD-10-PCS; 2021-08-30)
DX: G93.49 Other encephalopathy (principal); I50.33 Acute on chronic diastolic (congestive) heart failure; N18.6 End stage renal disease; I13.2 Hypertensive heart and chronic kidney disease with heart failure and with stage 5 chronic kidney disease, or end stage renal disease; N25.81 Secondary hyperparathyroidism of renal origin; Z20.822 Contact with and (suspected) exposure to COVID-19; E11.22 Type 2 diabetes mellitus with diabetic chronic kidney disease; E87.5 Hyperkalemia; E78.5 Hyperlipidemia, unspecified; F32.A Depression, unspecified; D63.8 Anemia in other chronic diseases classified elsewhere; Z86.73 Personal history of transient ischemic attack (TIA), and cerebral infarction without residual deficits; Z99.2 Dependence on renal dialysis; Z88.6 Allergy status to analgesic agent; Z99.3 Dependence on wheelchair
CPT/HCPCS: 36415; 70496; 70498; 70551; 71045; 74176; 80048; 80053; 80305; 80320; 81003; 82140; 82270; 82962; 83605; 85025; 86705; 86709; 86803; 86850; 86870; 86900; 87340; 87426; 90732; 92610; 93005; 93970; 97162; 99291; C1893; C9113; J0360; J1200; J1815; J1940; J3490; Q9967; G0480

== ENCOUNTER 2021-12-11 14:57 | Inpatient (IN) | payer MEDICARE, MEDICAID ==
[~2021-12-11] VITALS: Ht 162.6 cm; Wt 73.5 kg
[2021-12-11 15:44] LABS: EOSINOPHILS % 2.5 % (0.0-5.0); HEMATOCRIT. 38.8 % (36.0-48.0); HEMOGLOBIN. 12.5 g/dL (12.0-16.0); LYMPHOCYTES % 12.8 % (20.0-50.0); MEAN CORPUSCULAR HEMOGLOBIN 29.3 pg (28.0-32.0); MEAN CORPUSCULAR VOLUME 91.3 fL (81.0-99.0); MEAN PLATELET VOLUME 8.8 fl (7.4-10.4); MONOCYTES % 6.4 % (2.0-8.0); NEUTROPHILS % 77.3 % (40.0-76.0); PLATELET 241 x1000/uL (130-400); RED BLOOD CELL COUNT 4.26 mill/uL (4.2-5.4); RED CELL DISTRIBUTION WIDTH 17.7 % (11.6-14.6)
[2021-12-11 15:48] LABS: CHLORIDE 108 mEq/L (98-107)
[2021-12-11] MEDS ORDERED: SODIUM POLYSTYRENE SULFONATE 15 G/60 ML BOT PO ONE (16:45)
[2021-12-11] MEDS ORDERED: DEXTROSE 50% WATER 50ML SYRINGE IV ONE (16:45)
[2021-12-11] MEDS ORDERED: CALCIUM GLUCONATE 1,000 MG in DEXT 5% WATER 100 ML IV ONE (16:45)
[2021-12-11] MEDS ORDERED: SODIUM BICARBONATE 8.4% 1 MEQ/ML 50ML SYR IV ONE (16:45)
[2021-12-11] MEDS ORDERED: INSULIN REGULAR (HUMULIN R) 300UNITS/3ML VIAL IV ONE (16:45)
[2021-12-11] MEDS ORDERED: CALCIUM GLUCONATE 1GM PREMIX 50 ML IV SCH (17:00)
[2021-12-11] MEDS ORDERED: INSULIN REGULAR (HUMULIN R) 300UNITS/3ML VIAL IV NR (17:15)
[2021-12-11] MEDS ORDERED: GUAIFENESIN 200MG/10ML SUGAR FREE UDC PO PRN (19:15)
[2021-12-11] MEDS ORDERED: IPRATROPIUM/ALBUTEROL 0.5-3(2.5)MG/3ML NEB NEB PRN (19:15)
[2021-12-11] MEDS ORDERED: MAGNESIUM/ALUMINUM HYDROXIDE/SIMETHICONE 30ML UDC PO PRN (19:15)
[2021-12-11] MEDS ORDERED: DOCUSATE SODIUM 100MG CAPSULE PO PRN (19:15)
[2021-12-11] MEDS ORDERED: ONDANSETRON HCL 4MG/2ML INJ IV PRN (19:15)
[2021-12-11] MEDS ORDERED: ZOLPIDEM TARTRATE 5MG TABLET PO PRN (19:15)
[2021-12-11] MEDS ORDERED: ACETAMINOPHEN 325MG TABLET PO PRN ×2 (19:15)
[2021-12-11] MEDS ORDERED: NITROGLYCERIN 0.4MG TABLET SL SL PRN (19:15)
[2021-12-11] MEDS ORDERED: HYDRALAZINE 20MG/ML VIAL IV ONE (19:30)
[2021-12-11] MEDS: ENOXAPARIN 30MG/0.3ML SYR SUBCUT SCH (20:00)
[2021-12-11 21:31] LABS: HEPATITIS B SURFACE ANTIGEN NEGATIVE
[2021-12-11] MEDS ORDERED: HYDRALAZINE 20MG/ML VIAL IV SCH (21:45)
[2021-12-11 22:48] LABS: VITAMIN B12 SERUM 737 pg/mL (211-911)
[2021-12-11 22:58] LABS: FOLIC ACID (FOLATE) SERUM > 20.00 ng/mL (>5.38)
[2021-12-11 23:31] LABS: CREATINE KINASE 104 IU/L (26-192); CREATINE KINASE MB FRACTION 2.5 ng/mL (0.5-3.6)
[2021-12-12 05:45] LABS: BASOPHILS % 0.9 % (0.0-2.0); EOSINOPHILS % 0.4 % (0.0-5.0); HEMATOCRIT. 39.2 % (36.0-48.0); HEMOGLOBIN. 12.8 g/dL (12.0-16.0); LYMPHOCYTES % 8.6 % (20.0-50.0); MEAN CORPUSCULAR HEMOGLOBIN 29.8 pg (28.0-32.0); MEAN CORPUSCULAR VOLUME 91.3 fL (81.0-99.0); MEAN PLATELET VOLUME 8.7 fl (7.4-10.4); MONOCYTES % 5.9 % (2.0-8.0); NEUTROPHILS % 84.2 % (40.0-76.0); PLATELET 247 x1000/uL (130-400); RED BLOOD CELL COUNT 4.29 mill/uL (4.2-5.4); RED CELL DISTRIBUTION WIDTH 17.5 % (11.6-14.6)
[2021-12-12 06:00] LABS: CHLORIDE 108 mEq/L (98-107)
[2021-12-12 06:06] LABS: PHOSPHORUS 5.8 mg/dL (2.5-4.9)
[2021-12-12 06:42] LABS: CREATINE KINASE MB FRACTION 2.2 ng/mL (0.5-3.6)
[2021-12-12] MEDS ORDERED: ASPIRIN 325MG EC TABLET PO SCH (09:00)
[2021-12-12] MEDS: AMLODIPINE 10MG TABLET PO SCH (11:15)
[2021-12-12] MEDS: SEVELAMER CARBONATE 800 MG TABLET PO SCH (11:15)
[2021-12-12] MEDS: HYDRALAZINE HCL 50MG TABLET PO SCH (11:15)
[2021-12-12] MEDS: CLOPIDOGREL 75MG TABLET PO SCH (11:15)
[2021-12-12] MEDS: FAMOTIDINE 20MG TABLET PO SCH ×2 (11:16→21:00)
[2021-12-12 12:57] VITALS: BP 172/65
[2021-12-12 16:00] VITALS: BP 151/55
[2021-12-12 20:00] VITALS: BP 152/76
[2021-12-13] VITALS: BP 158/72
[2021-12-13] MEDS: ENOXAPARIN 30MG/0.3ML SYR SUBCUT SCH ×2 (03:12→21:18)
[2021-12-13] MEDS: DIPHENHYDRAMINE 50MG/ML VIAL IV PRN (03:13)
[2021-12-13 04:12] VITALS: BP 148/88
[2021-12-13] MEDS: SEVELAMER CARBONATE 800 MG TABLET PO SCH ×3 (07:50→18:41)
[2021-12-13 08:00] VITALS: BP 157/56
[2021-12-13] MEDS: AMLODIPINE 10MG TABLET PO SCH ×2 (10:17→10:19)
[2021-12-13] MEDS: CLOPIDOGREL 75MG TABLET PO SCH (10:18)
[2021-12-13 12:00] VITALS: BP 152/70
[2021-12-13] MEDS: HYDRALAZINE HCL 50MG TABLET PO SCH ×2 (14:00→21:17)
[2021-12-13 16:00] VITALS: BP 162/62
[2021-12-13] MEDS: CLONIDINE 0.1MG TABLET PO PRN (18:41)
[2021-12-13 20:00] VITALS: BP 168/76
[2021-12-13] MEDS: FAMOTIDINE 20MG TABLET PO SCH (21:17)
[2021-12-14] VITALS: BP 160/68
[2021-12-14 04:00] VITALS: BP 166/67
[2021-12-14] MEDS: CLONIDINE 0.1MG TABLET PO PRN (04:37)
[2021-12-14] MEDS: HYDRALAZINE HCL 50MG TABLET PO SCH ×4 (06:44→22:00)
[2021-12-14 08:00] VITALS: BP 140/52
[2021-12-14] MEDS: SEVELAMER CARBONATE 800 MG TABLET PO SCH ×3 (09:17→18:23)
[2021-12-14] MEDS: CLOPIDOGREL 75MG TABLET PO SCH (09:17)
[2021-12-14] MEDS: AMLODIPINE 10MG TABLET PO SCH (09:23)
[2021-12-14 12:00] VITALS: BP 144/56
[2021-12-14 16:30] VITALS: BP 144/56
[2021-12-14 20:00] VITALS: BP 146/69
[2021-12-14] MEDS: ENOXAPARIN 30MG/0.3ML SYR SUBCUT SCH ×2 (20:00→21:21)
[2021-12-14] MEDS: FAMOTIDINE 20MG TABLET PO SCH ×2 (21:00→21:21)
[2021-12-14] MEDS: DIPHENHYDRAMINE 50MG/ML VIAL IV PRN (23:21)
[2021-12-15] VITALS: BP 146/68
[2021-12-15 04:00] VITALS: BP 149/46
[2021-12-15] MEDS: HYDRALAZINE HCL 50MG TABLET PO SCH ×2 (06:00→17:12)
[2021-12-15 08:00] VITALS: BP 161/64
[2021-12-15 09:14] LABS: BASOPHILS % 0.9 % (0.0-2.0); EOSINOPHILS % 5.1 % (0.0-5.0); HEMATOCRIT. 37.5 % (36.0-48.0); LYMPHOCYTES % 17.4 % (20.0-50.0); MEAN CORPUSCULAR HEMOGLOBIN 28.6 pg (28.0-32.0); MEAN CORPUSCULAR VOLUME 89.1 fL (81.0-99.0); MONOCYTES % 12.1 % (2.0-8.0); NEUTROPHILS % 64.5 % (40.0-76.0); PLATELET 195 x1000/uL (130-400); RED CELL DISTRIBUTION WIDTH 17.8 % (11.6-14.6)
[2021-12-15] MEDS: CLOPIDOGREL 75MG TABLET PO SCH (09:17)
[2021-12-15] MEDS: AMLODIPINE 10MG TABLET PO SCH (09:18)
[2021-12-15 12:00] VITALS: BP 153/64
[2021-12-15 15:29] VITALS: BP 159/72
== END 2021-12-15 18:18 | disposition home or self-care (01) | DRG 91 ==
LOC: ER 14:57 → MICUSO 17:22 → EDBEDREQ 17:39 → SUPCPDRO 19:09 → 6WST 12-12 12:26
PROVIDERS: ADMIT Internal Medicine; ATTEND Internal Medicine
PROC: 5A1D70Z Performance of Urinary Filtration, Intermittent, Less than 6 Hours Per Day (ICD-10-PCS; principal; 2021-12-11)
PROC: 5A1D70Z Performance of Urinary Filtration, Intermittent, Less than 6 Hours Per Day (ICD-10-PCS; 2021-12-12)
PROC: 5A1D70Z Performance of Urinary Filtration, Intermittent, Less than 6 Hours Per Day (ICD-10-PCS; 2021-12-13)
PROC: 5A1D70Z Performance of Urinary Filtration, Intermittent, Less than 6 Hours Per Day (ICD-10-PCS; 2021-12-15)
DX: G92.8 Other toxic encephalopathy (principal); N18.6 End stage renal disease; I13.2 Hypertensive heart and chronic kidney disease with heart failure and with stage 5 chronic kidney disease, or end stage renal disease; E87.5 Hyperkalemia; E78.00 Pure hypercholesterolemia, unspecified; F32.A Depression, unspecified; Z20.822 Contact with and (suspected) exposure to COVID-19; D63.8 Anemia in other chronic diseases classified elsewhere; I50.9 Heart failure, unspecified; E21.1 Secondary hyperparathyroidism, not elsewhere classified; Z86.73 Personal history of transient ischemic attack (TIA), and cerebral infarction without residual deficits; E78.5 Hyperlipidemia, unspecified; Z99.2 Dependence on renal dialysis; Z88.6 Allergy status to analgesic agent; Z79.899 Other long term (current) drug therapy; Z82.49 Family history of ischemic heart disease and other diseases of the circulatory system; Z78.1 Physical restraint status; I25.2 Old myocardial infarction; E11.8 Type 2 diabetes mellitus with unspecified complications; M54.9 Dorsalgia, unspecified
CPT/HCPCS: 36415; 70551; 71045; 71048; 80048; 80053; 80061; 82550; 82553; 82607; 82746; 83036; 83540; 83550; 83605; 83735; 83880; 84100; 84145; 84443; 84484; 85025; 86705; 86709; 86803; 87340; 87426; 93005; 93306; 93970; 99291; C1893; J0610; J1200; J1650; J3490; J7060

== ENCOUNTER 2022-01-01 06:11 | Inpatient (IN) | payer MEDICARE, MEDICAID ==
[~2022-01-01] VITALS: Ht 165.1 cm; Wt 54.1 kg
[2022-01-01 06:48] LABS: CHLORIDE 107 mEq/L (98-107); EOSINOPHILS % 2.1 % (0.0-5.0); HEMATOCRIT. 37.5 % (36.0-48.0); HEMOGLOBIN. 12.1 g/dL (12.0-16.0); LYMPHOCYTES % 15.5 % (20.0-50.0); MEAN CORPUSCULAR HEMOGLOBIN 28.6 pg (28.0-32.0); MEAN CORPUSCULAR VOLUME 88.5 fL (81.0-99.0); MEAN PLATELET VOLUME 9.9 fl (7.4-10.4); MONOCYTES % 6.2 % (2.0-8.0); NEUTROPHILS % 75.2 % (40.0-76.0); PLATELET 184 x1000/uL (130-400); RED BLOOD CELL COUNT 4.24 mill/uL (4.2-5.4); RED CELL DISTRIBUTION WIDTH 17.2 % (11.6-14.6)
[2022-01-01 07:24] LABS: CREATINE KINASE 34 IU/L (26-192)
[2022-01-01] MEDS ORDERED: SODIUM CHLORIDE 0.9% 1,000 ML IV ONE (07:30)
[2022-01-01 11:27] LABS: HEPATITIS B SURFACE ANTIGEN NEGATIVE
[2022-01-01 16:00] VITALS: BP_SYST 100; BP_DIAS 62; BP_DIAS 65
[2022-01-01] MEDS ORDERED: DEXTROSE 5% WATER 1,000 ML IV SCH (18:15)
[2022-01-01] MEDS ORDERED: ACETAMINOPHEN 325MG TABLET PO PRN (18:15)
[2022-01-01] MEDS ORDERED: HYDROCODONE/ACETAMINOPHEN 5/325MG TABLET PO PRN (18:15)
[2022-01-01] MEDS ORDERED: IPRATROPIUM/ALBUTEROL 0.5-3(2.5)MG/3ML NEB HHN PRN (18:15)
[2022-01-01] MEDS ORDERED: GUAIFENESIN 200MG/10ML SUGAR FREE UDC PO PRN (18:15)
[2022-01-01] MEDS ORDERED: CLONIDINE 0.1MG TABLET PO PRN (18:15)
[2022-01-01] MEDS ORDERED: ONDANSETRON HCL 4MG/2ML INJ IV PRN (18:15)
[2022-01-01] MEDS ORDERED: DOCUSATE SODIUM 100MG CAPSULE PO PRN (18:15)
[2022-01-01] MEDS ORDERED: DIPHENHYDRAMINE 50MG/ML VIAL IV PRN (18:15)
[2022-01-01] MEDS ORDERED: MAGNESIUM/ALUMINUM HYDROXIDE/SIMETHICONE 30ML UDC PO PRN (18:15)
[2022-01-01] MEDS ORDERED: MORPHINE SULFATE 2 MG/ML CPJ (NOT FOR IM USE) IV PRN (18:15)
[2022-01-01] MEDS ORDERED: LORAZEPAM 2MG/ML CPJ IV PRN (18:15)
[2022-01-01] MEDS ORDERED: HYDRALAZINE 20MG/ML VIAL IV PRN (18:15)
[2022-01-01] MEDS ORDERED: NALOXONE HCL 0.4MG/ML VIAL IV PRN (18:45)
[2022-01-01 20:00] VITALS: BP 119/45
[2022-01-01] MEDS: SODIUM CHLORIDE 0.9% INJ 3ML FLUSH IVF SCH (21:57)
[2022-01-01] MEDS: ENOXAPARIN 30MG/0.3ML SYR SUBCUT SCH (21:57)
[2022-01-02] VITALS: BP 100/38
[2022-01-02 04:00] VITALS: BP 113/47
[2022-01-02] MEDS: SODIUM CHLORIDE 0.9% INJ 3ML FLUSH IVF SCH ×2 (05:26→21:49)
[2022-01-02 06:49] LABS: BASOPHILS % 1.5 % (0.0-2.0); EOSINOPHILS % 2.5 % (0.0-5.0); HEMATOCRIT. 36.3 % (36.0-48.0); HEMOGLOBIN. 11.9 g/dL (12.0-16.0); LYMPHOCYTES % 20.5 % (20.0-50.0); MEAN CORPUSCULAR HEMOGLOBIN 28.7 pg (28.0-32.0); MEAN CORPUSCULAR VOLUME 87.4 fL (81.0-99.0); NEUTROPHILS % 67.5 % (40.0-76.0); PLATELET 175 x1000/uL (130-400); RED BLOOD CELL COUNT 4.15 mill/uL (4.2-5.4)
[2022-01-02 07:21] LABS: CHLORIDE 109 mEq/L (98-107)
[2022-01-02 08:00] VITALS: BP_SYST 125; BP_SYST 141; BP_DIAS 47; BP_DIAS 49
[2022-01-02 12:00] VITALS: BP 114/41
[2022-01-02 16:00] VITALS: BP 112/41
[2022-01-02 20:00] VITALS: BP 117/46
[2022-01-02] MEDS: ENOXAPARIN 30MG/0.3ML SYR SUBCUT SCH (21:48)
[2022-01-03] VITALS: BP 116/44
[2022-01-03 04:00] VITALS: BP 118/47
[2022-01-03] MEDS: SODIUM CHLORIDE 0.9% INJ 3ML FLUSH IVF SCH ×3 (05:05→21:49)
[2022-01-03 07:27] LABS: VITAMIN B12 SERUM 882 pg/mL (211-911)
[2022-01-03 08:00] VITALS: BP 129/53
[2022-01-03 12:00] VITALS: BP 105/40
[2022-01-03] MEDS ORDERED: CLON1PAT38 TD (12:24)
[2022-01-03 16:00] VITALS: BP 117/42
[2022-01-03 20:00] VITALS: BP 147/64
[2022-01-03] MEDS: ENOXAPARIN 30MG/0.3ML SYR SUBCUT SCH (21:49)
[2022-01-04] VITALS: BP 133/55
[2022-01-04 04:00] VITALS: BP 145/64
[2022-01-04] MEDS: SODIUM CHLORIDE 0.9% INJ 3ML FLUSH IVF SCH ×2 (06:00→13:31)
[2022-01-04 08:00] VITALS: BP 143/57
[2022-01-04 12:00] VITALS: BP 122/61
[2022-01-04 15:32] VITALS: BP 148/68
[2022-01-04 15:39] VITALS: BP 148/68
[2022-01-04 18:56] LABS: HEPATITIS B SURFACE ANTIGEN NEGATIVE
== END 2022-01-04 17:48 | disposition home or self-care (01) | DRG 70 ==
LOC: ER 06:11 → 6WST 10:41 → EDBEDREQTM 10:43 → EDBEDREQ 10:43 → ENRESERV 11:29
PROVIDERS: ADMIT Internal Medicine; ATTEND Internal Medicine
PROC: 5A1D70Z Performance of Urinary Filtration, Intermittent, Less than 6 Hours Per Day (ICD-10-PCS; 2022-01-01)
PROC: 4A10X4Z Monitoring of Central Nervous Electrical Activity, External Approach (ICD-10-PCS; principal; 2022-01-03)
PROC: 5A1D70Z Performance of Urinary Filtration, Intermittent, Less than 6 Hours Per Day (ICD-10-PCS; 2022-01-03)
DX: G93.49 Other encephalopathy (principal); N18.6 End stage renal disease; I12.0 Hypertensive chronic kidney disease with stage 5 chronic kidney disease or end stage renal disease; E87.5 Hyperkalemia; E11.22 Type 2 diabetes mellitus with diabetic chronic kidney disease; D63.8 Anemia in other chronic diseases classified elsewhere; E78.5 Hyperlipidemia, unspecified; F32.A Depression, unspecified; E21.1 Secondary hyperparathyroidism, not elsewhere classified; G89.29 Other chronic pain; Z86.73 Personal history of transient ischemic attack (TIA), and cerebral infarction without residual deficits; Z99.2 Dependence on renal dialysis; Z88.6 Allergy status to analgesic agent; Z79.899 Other long term (current) drug therapy; Z82.49 Family history of ischemic heart disease and other diseases of the circulatory system; Z79.02 Long term (current) use of antithrombotics/antiplatelets
CPT/HCPCS: 36415; 70551; 80053; 82140; 82550; 82607; 82962; 83605; 84443; 84484; 85025; 86705; 86709; 86803; 87340; 93005; 95816; 97162; 97166; 97535; 99285; J1650; J2270; J7030

== ENCOUNTER 2022-01-07 08:37 | Inpatient (IN) | payer MEDICARE, MEDICAID ==
[~2022-01-07] VITALS: Ht 157.5 cm; Wt 67.1 kg
[~2022-01-07 08:37] MED LIST changes: +CLON1PAT38 TD
[2022-01-07] MEDS ORDERED: SODIUM CHLORIDE 0.9% 1,000 ML IV ONE (09:30)
[2022-01-07 09:54] LABS: BASOPHILS % 0.6 % (0.0-2.0); EOSINOPHILS % 2.2 % (0.0-5.0); HEMATOCRIT. 35.2 % (36.0-48.0); HEMOGLOBIN. 11.1 g/dL (12.0-16.0); LYMPHOCYTES % 14.4 % (20.0-50.0); MEAN CORPUSCULAR HEMOGLOBIN 28.5 pg (28.0-32.0); MEAN CORPUSCULAR VOLUME 90.3 fL (81.0-99.0); MEAN PLATELET VOLUME 10.4 fl (7.4-10.4); MONOCYTES % 6.3 % (2.0-8.0); NEUTROPHILS % 76.5 % (40.0-76.0); PLATELET 133 x1000/uL (130-400); RED CELL DISTRIBUTION WIDTH 17.5 % (11.6-14.6)
[2022-01-07 10:07] LABS: CHLORIDE 108 mEq/L (98-107)
[2022-01-07] MEDS ORDERED: SODIUM BICARBONATE 8.4% 1 MEQ/ML 50ML SYR IV ONE (12:00)
[2022-01-07] MEDS ORDERED: CALCIUM GLUCONATE 1,000 MG in DEXT 5% WATER 100 ML IV ONE (12:00)
[2022-01-07] MEDS ORDERED: INSULIN REGULAR (HUMULIN R) 300UNITS/3ML VIAL IV ONE (12:00)
[2022-01-07] MEDS ORDERED: DEXTROSE 50% WATER 50ML SYRINGE IV ONE (12:00)
[2022-01-07] MEDS ORDERED: ONDANSETRON HCL 4MG/2ML INJ IV PRN (12:15)
[2022-01-07] MEDS ORDERED: GUAIFENESIN 200MG/10ML SUGAR FREE UDC PO PRN (12:15)
[2022-01-07] MEDS ORDERED: IPRATROPIUM/ALBUTEROL 0.5-3(2.5)MG/3ML NEB NEB PRN (12:15)
[2022-01-07] MEDS ORDERED: INSULIN REGULAR (HUMULIN R) 300UNITS/3ML VIAL IV NR (12:15)
[2022-01-07] MEDS ORDERED: ACETAMINOPHEN 325MG TABLET PO PRN (12:15)
[2022-01-07] MEDS ORDERED: CALCIUM GLUCONATE 1GM PREMIX 50 ML IV SCH (12:15)
[2022-01-07] MEDS ORDERED: DOCUSATE SODIUM 100MG CAPSULE PO PRN (12:15)
[2022-01-07] MEDS ORDERED: ZOLPIDEM TARTRATE 5MG TABLET PO PRN (12:15)
[2022-01-07] MEDS ORDERED: NITROGLYCERIN 0.4MG TABLET SL SL PRN (12:15)
[2022-01-07] MEDS ORDERED: MAGNESIUM/ALUMINUM HYDROXIDE/SIMETHICONE 30ML UDC PO PRN (12:15)
[2022-01-07 13:18] LABS: T4 FREE 1.03 ng/dL (0.76-1.46)
[2022-01-07] MEDS: ENOXAPARIN 30MG/0.3ML SYR SUBCUT SCH (14:00)
[2022-01-07] MEDS: FAMOTIDINE 20MG TABLET PO SCH (15:00)
[2022-01-07] MEDS: CLOPIDOGREL 75MG TABLET PO SCH (15:05)
[2022-01-07] MEDS: SEVELAMER CARBONATE 800 MG TABLET PO SCH (15:05)
[2022-01-07 16:37] LABS: CREATINE KINASE MB FRACTION 1.8 ng/mL (0.5-3.6)
[2022-01-07 17:04] LABS: HEPATITIS B SURFACE ANTIGEN NEGATIVE
[2022-01-07] MEDS ORDERED: SODIUM CHLORIDE 0.9% 500 ML IV ONE (18:00)
[2022-01-07 18:19] LABS: FOLIC ACID (FOLATE) SERUM >20 ng/mL ng/mL (>5.38); VITAMIN B12 SERUM 873 pg/mL (211-911)
[2022-01-07 19:30] VITALS: BP 104/52
[2022-01-07 20:00] VITALS: BP 104/52
[2022-01-07] MEDS: ATORVASTATIN CALCIUM 40MG TABLET PO SCH (21:00)
[2022-01-07] MEDS: ASCORBIC ACID 500 MG TABLET PO SCH (21:00)
[2022-01-08] VITALS: BP 95/45
[2022-01-08 00:46] LABS: CREATINE KINASE MB FRACTION 2.1 ng/mL (0.5-3.6)
[2022-01-08 04:00] VITALS: BP 110/46
[2022-01-08 05:46] LABS: BASOPHILS % 0.7 % (0.0-2.0); EOSINOPHILS % 1.2 % (0.0-5.0); HEMATOCRIT. 32.8 % (36.0-48.0); HEMOGLOBIN. 10.8 g/dL (12.0-16.0); LYMPHOCYTES % 13.5 % (20.0-50.0); MEAN CORPUSCULAR HEMOGLOBIN 28.8 pg (28.0-32.0); MEAN CORPUSCULAR VOLUME 87.8 fL (81.0-99.0); MEAN PLATELET VOLUME 10.2 fl (7.4-10.4); MONOCYTES % 9.8 % (2.0-8.0); NEUTROPHILS % 74.8 % (40.0-76.0); PLATELET 145 x1000/uL (130-400); RED BLOOD CELL COUNT 3.73 mill/uL (4.2-5.4); RED CELL DISTRIBUTION WIDTH 17.2 % (11.6-14.6)
[2022-01-08 05:58] LABS: CHLORIDE 111 mEq/L (98-107)
[2022-01-08 08:00] VITALS: BP 115/46
[2022-01-08] MEDS: FAMOTIDINE 20MG TABLET PO SCH ×2 (09:00→15:57)
[2022-01-08] MEDS: CLOPIDOGREL 75MG TABLET PO SCH ×2 (09:00→15:56)
[2022-01-08] MEDS: ZINC SULFATE 220 MG ( 50 ) CAPSULE PO SCH ×2 (09:00→15:57)
[2022-01-08] MEDS: ASCORBIC ACID 500 MG TABLET PO SCH ×2 (09:00→15:57)
[2022-01-08] MEDS: CHOLECALCIFEROL (D3) 1000 UNIT TABLET PO SCH ×2 (09:00→15:56)
[2022-01-08 12:00] VITALS: BP 110/52
[2022-01-08] MEDS: ENOXAPARIN 30MG/0.3ML SYR SUBCUT SCH (15:15)
[2022-01-08 16:00] VITALS: BP 109/56
[2022-01-08 20:00] VITALS: BP 148/56
[2022-01-08] MEDS: ATORVASTATIN CALCIUM 40MG TABLET PO SCH (21:48)
[2022-01-09] VITALS: BP 133/37
[2022-01-09 08:23] VITALS: BP 159/67
[2022-01-09] MEDS: ASCORBIC ACID 500 MG TABLET PO SCH ×2 (09:01→21:31)
[2022-01-09] MEDS: ENOXAPARIN 30MG/0.3ML SYR SUBCUT SCH (09:01)
[2022-01-09] MEDS: SEVELAMER CARBONATE 800 MG TABLET PO SCH ×3 (09:03→17:39)
[2022-01-09 12:30] VITALS: BP 111/45
[2022-01-09 16:23] VITALS: BP 120/37
[2022-01-09] MEDS: ACETAMINOPHEN 325MG TABLET PO PRN (17:40)
[2022-01-09 20:00] VITALS: BP 114/46
[2022-01-09] MEDS: ATORVASTATIN CALCIUM 40MG TABLET PO SCH (21:31)
[2022-01-10] VITALS: BP_SYST 129; BP_SYST 146; BP_DIAS 63; BP_DIAS 64
[2022-01-10 04:00] VITALS: BP 150/52
[2022-01-10 08:00] VITALS: BP 164/72
[2022-01-10] MEDS: FAMOTIDINE 20MG TABLET PO SCH (09:25)
[2022-01-10] MEDS: ZINC SULFATE 220 MG ( 50 ) CAPSULE PO SCH (09:25)
[2022-01-10] MEDS: ACETAMINOPHEN 325MG TABLET PO PRN ×2 (09:25→17:05)
[2022-01-10] MEDS: CLONIDINE 0.1MG TABLET PO PRN (09:25)
[2022-01-10] MEDS: SEVELAMER CARBONATE 800 MG TABLET PO SCH ×3 (09:25→17:05)
[2022-01-10] MEDS: CLOPIDOGREL 75MG TABLET PO SCH (09:26)
[2022-01-10] MEDS: ASCORBIC ACID 500 MG TABLET PO SCH ×2 (09:26→21:49)
[2022-01-10] MEDS: CHOLECALCIFEROL (D3) 1000 UNIT TABLET PO SCH (09:26)
[2022-01-10] MEDS: ENOXAPARIN 30MG/0.3ML SYR SUBCUT SCH (09:27)
[2022-01-10 12:00] VITALS: BP 165/68
[2022-01-10] MEDS: ATORVASTATIN CALCIUM 40MG TABLET PO SCH (21:49)
[2022-01-11] VITALS: BP 129/63
[2022-01-11 04:00] VITALS: BP 125/65
[2022-01-11] MEDS: ACETAMINOPHEN 325MG TABLET PO PRN (04:32)
[2022-01-11] MEDS: CLOPIDOGREL 75MG TABLET PO SCH (07:48)
[2022-01-11] MEDS: CHOLECALCIFEROL (D3) 1000 UNIT TABLET PO SCH (07:48)
[2022-01-11] MEDS: ASCORBIC ACID 500 MG TABLET PO SCH ×2 (07:48→21:29)
[2022-01-11] MEDS: ENOXAPARIN 30MG/0.3ML SYR SUBCUT SCH (07:48)
[2022-01-11] MEDS: SEVELAMER CARBONATE 800 MG TABLET PO SCH ×3 (07:48→17:29)
[2022-01-11] MEDS: FAMOTIDINE 20MG TABLET PO SCH (07:49)
[2022-01-11] MEDS: CLONIDINE 0.1MG TABLET PO PRN (07:49)
[2022-01-11] MEDS: ZINC SULFATE 220 MG ( 50 ) CAPSULE PO SCH (07:49)
[2022-01-11 08:00] VITALS: BP 190/70
[2022-01-11 12:00] VITALS: BP 198/75
[2022-01-11 16:00] VITALS: BP 153/69
[2022-01-11 20:00] VITALS: BP 179/68
[2022-01-11] MEDS: ATORVASTATIN CALCIUM 40MG TABLET PO SCH (21:29)
[2022-01-12] VITALS: BP 150/65
[2022-01-12 04:00] VITALS: BP 174/69
[2022-01-12] MEDS: CLONIDINE 0.1MG TABLET PO PRN ×4 (04:02→21:01)
[2022-01-12 08:00] VITALS: BP 187/68
[2022-01-12] MEDS: ENOXAPARIN 30MG/0.3ML SYR SUBCUT SCH (08:36)
[2022-01-12] MEDS: ZINC SULFATE 220 MG ( 50 ) CAPSULE PO SCH (08:37)
[2022-01-12] MEDS: CHOLECALCIFEROL (D3) 1000 UNIT TABLET PO SCH (08:37)
[2022-01-12] MEDS: ASCORBIC ACID 500 MG TABLET PO SCH ×2 (08:37→21:01)
[2022-01-12] MEDS: CLOPIDOGREL 75MG TABLET PO SCH (08:37)
[2022-01-12] MEDS: FAMOTIDINE 20MG TABLET PO SCH (08:37)
[2022-01-12] MEDS: SEVELAMER CARBONATE 800 MG TABLET PO SCH ×3 (08:39→17:28)
[2022-01-12 09:49] LABS: *AMPHETAMINES SCREEN URINE NEGATIVE (NEGATIVE); *BARBITURATES SCREEN URINE NEGATIVE (NEGATIVE); *BENZODIAZEPINES SCREEN URINE NEGATIVE (NEGATIVE); *COCAINE SCREEN URINE NEGATIVE (NEGATIVE); CANNABINOID URINE SCREEN NEGATIVE (NEGATIVE); METHADONE URINE SCREEN NEGATIVE (NEGATIVE); OPIATES URINE SCREEN NEGATIVE (NEGATIVE); PHENCYCLIDINE URINE SCREEN NEGATIVE (NEGATIVE)
[2022-01-12 12:00] VITALS: BP 178/65
[2022-01-12 16:00] VITALS: BP 164/81
[2022-01-12 16:48] LABS: HEPATITIS B SURFACE ANTIGEN NEGATIVE
[2022-01-12 20:00] VITALS: BP 183/77
[2022-01-12] MEDS: ATORVASTATIN CALCIUM 40MG TABLET PO SCH (21:01)
[2022-01-13] VITALS: BP 194/65
[2022-01-13] MEDS: CLONIDINE 0.1MG TABLET PO PRN ×2 (02:49→08:02)
[2022-01-13 04:00] VITALS: BP_SYST 170; BP_SYST 200; BP_DIAS 50; BP_DIAS 82
[2022-01-13 08:00] VITALS: BP 181/66
[2022-01-13] MEDS: FAMOTIDINE 20MG TABLET PO SCH (08:01)
[2022-01-13] MEDS: ASCORBIC ACID 500 MG TABLET PO SCH (08:01)
[2022-01-13] MEDS: ZINC SULFATE 220 MG ( 50 ) CAPSULE PO SCH (08:01)
[2022-01-13] MEDS: ENOXAPARIN 30MG/0.3ML SYR SUBCUT SCH (08:01)
[2022-01-13] MEDS: CLOPIDOGREL 75MG TABLET PO SCH (08:02)
[2022-01-13] MEDS: SEVELAMER CARBONATE 800 MG TABLET PO SCH ×2 (08:02→13:00)
[2022-01-13] MEDS: CHOLECALCIFEROL (D3) 1000 UNIT TABLET PO SCH (08:02)
[2022-01-13 12:00] VITALS: BP 115/57
[2022-01-13 12:40] VITALS: BP 115/57
== END 2022-01-13 16:12 | DRG 91 ==
LOC: ER 08:54 → 6WST 11:50 → EDBEDREQ 11:53 → EDBEDREQTM 11:53 → ENRESERV 17:05 → 6WST 20:30
PROVIDERS: ADMIT Internal Medicine; ATTEND Internal Medicine
PROC: 5A1D70Z Performance of Urinary Filtration, Intermittent, Less than 6 Hours Per Day (ICD-10-PCS; principal; 2022-01-07)
PROC: 5A1D70Z Performance of Urinary Filtration, Intermittent, Less than 6 Hours Per Day (ICD-10-PCS; 2022-01-09)
PROC: 5A1D70Z Performance of Urinary Filtration, Intermittent, Less than 6 Hours Per Day (ICD-10-PCS; 2022-01-11)
DX: G92.8 Other toxic encephalopathy (principal); I21.4 Non-ST elevation (NSTEMI) myocardial infarction; N18.6 End stage renal disease; N25.81 Secondary hyperparathyroidism of renal origin; I13.11 Hypertensive heart and chronic kidney disease without heart failure, with stage 5 chronic kidney disease, or end stage renal disease; E87.5 Hyperkalemia; D63.8 Anemia in other chronic diseases classified elsewhere; E11.22 Type 2 diabetes mellitus with diabetic chronic kidney disease; E78.00 Pure hypercholesterolemia, unspecified; E78.5 Hyperlipidemia, unspecified; M54.9 Dorsalgia, unspecified; R79.89 Other specified abnormal findings of blood chemistry; R77.8 Other specified abnormalities of plasma proteins; M51.36 Other intervertebral disc degeneration, lumbar region; T40.2X5A Adverse effect of other opioids, initial encounter; T42.4X5A Adverse effect of benzodiazepines, initial encounter; G89.4 Chronic pain syndrome; F32.A Depression, unspecified; Z99.2 Dependence on renal dialysis; Z86.73 Personal history of transient ischemic attack (TIA), and cerebral infarction without residual deficits; Z79.02 Long term (current) use of antithrombotics/antiplatelets; Z20.822 Contact with and (suspected) exposure to COVID-19; Y92.89 Other specified places as the place of occurrence of the external cause; R53.81 Other malaise
CPT/HCPCS: 36415; 71045; 80053; 80061; 80305; 82550; 82553; 82607; 82746; 82962; 83036; 83540; 83550; 83605; 83735; 84100; 84145; 84439; 84443; 84484; 85025; 86705; 86709; 86803; 87340; 93005; 93970; 97162; 97166; 99291; J0610; J1650; J1815; J3490; J7030; J7060

== ENCOUNTER 2022-09-02 10:05 | Inpatient (IN) | payer MEDICARE, MEDICAID ==
[2022-09-02] VITALS (9 sets, daily range): BP systolic 80–145; BP diastolic 5–79
[~2022-09-02] VITALS: Ht 152.4 cm; Wt 81.2 kg
[2022-09-02] MEDS ORDERED: MORPHINE SULFATE 4 MG/ML CPJ (NOT FOR IM USE) IV ONE (11:00)
[2022-09-02 11:33] LABS: BASOPHILS % 0.9 % (0.0-2.0); CHLORIDE 100 mEq/L (98-107); EOSINOPHILS % 2.7 % (0.0-5.0); HEMATOCRIT. 24.1 % (36.0-48.0); HEMOGLOBIN. 7.9 g/dL (12.0-16.0); LYMPHOCYTES % 11.7 % (20.0-50.0); MEAN CORPUSCULAR HEMOGLOBIN 30.9 pg (28.0-32.0); MEAN CORPUSCULAR VOLUME 94.6 fL (81.0-99.0); MEAN PLATELET VOLUME 9.1 fl (7.4-10.4); MONOCYTES % 4.5 % (2.0-8.0); NEUTROPHILS % 80.2 % (40.0-76.0); PLATELET 271 x1000/uL (130-400); RED BLOOD CELL COUNT 2.54 mill/uL (4.2-5.4); RED CELL DISTRIBUTION WIDTH 14.7 % (11.6-14.6)
[2022-09-02 11:41] LABS: ETHANOL BLOOD < 10 mg/dL
[2022-09-02] MEDS ORDERED: ONDANSETRON HCL 4MG/2ML INJ IV PRN (16:00)
[2022-09-02] MEDS ORDERED: CLONIDINE 0.1MG TABLET PO PRN (16:00)
[2022-09-02] MEDS ORDERED: IPRATROPIUM/ALBUTEROL 0.5-3(2.5)MG/3ML NEB NEB PRN (16:00)
[2022-09-02] MEDS: NIFEDIPINE XL 90MG TAB PO SCH (16:29)
[2022-09-02] MEDS: ENOXAPARIN 30MG/0.3ML SYR SUBCUT SCH (16:30)
[2022-09-02 16:40] LABS: *AMPHETAMINES SCREEN URINE NEGATIVE (NEGATIVE); *BARBITURATES SCREEN URINE NEGATIVE (NEGATIVE); *BENZODIAZEPINES SCREEN URINE NEGATIVE (NEGATIVE); *COCAINE SCREEN URINE NEGATIVE (NEGATIVE); CANNABINOID URINE SCREEN NEGATIVE (NEGATIVE); METHADONE URINE SCREEN NEGATIVE (NEGATIVE); OPIATES URINE SCREEN NEGATIVE (NEGATIVE); PHENCYCLIDINE URINE SCREEN NEGATIVE (NEGATIVE)
[2022-09-02] MEDS: CITRIC ACID/SODIUM CITRATE SOLN 30ML UDC PO SCH (17:27)
[2022-09-02 18:24] LABS: HEPATITIS B SURFACE ANTIGEN NEGATIVE
[2022-09-02 23:33] LABS: CREATINE KINASE 69 IU/L (26-192); CREATINE KINASE MB FRACTION < 1.0 ng/mL (0.5-3.6)
[2022-09-03] MEDS ORDERED: PIPERACILLIN/TAZ 3.375G PREMIX 50 ML IV NR (00:01)
[2022-09-03 01:20] LABS: BG BASE EXCESS 7.2 mmol/L (-2.0-2.0); BG CARBOXYHEMOGLOBIN 0.3 % (0.5-1.5); BG DEOXYHEMOGLOBIN 1.4 % (0.0-5.0); BG FRACTION INSPIRED OXYGEN 100; BG HCO3 ACT 31.3 mmol/L (22.0-26.0); BG METHEMOGLOBIN 0.2 % (0.0-1.5); BG OXYGEN SATURATION 98.6 % (92.0-98.5); BG OXYHEMOGLOBIN 98.1 % (94.0-97.0); BG PCO2 42.5 mmHg (35.0-45.0); BG PH 7.485 (7.350-7.450); BG PO2 139.3 mmHg (75.0-100.0); BG SAMPLE SITE LEFT BRACHIAL; BG TOTAL HEMOGLOBIN 9.3 g/dL (12.0-18.0); BG VENT MODE MASK - NRB
[2022-09-03] MEDS: GABAPENTIN 100MG CAPSULE PO SCH ×2 (03:00→21:05)
[2022-09-03 05:31] LABS: EOSINOPHILS % 3.2 % (0.0-5.0); HEMATOCRIT. 21.7 % (36.0-48.0); HEMOGLOBIN. 7.3 g/dL (12.0-16.0); LYMPHOCYTES % 12.9 % (20.0-50.0); MEAN CORPUSCULAR HEMOGLOBIN 31.4 pg (28.0-32.0); MEAN CORPUSCULAR VOLUME 93.6 fL (81.0-99.0); MEAN PLATELET VOLUME 8.7 fl (7.4-10.4); MONOCYTES % 6.5 % (2.0-8.0); NEUTROPHILS % 76.4 % (40.0-76.0); PLATELET 237 x1000/uL (130-400); RED BLOOD CELL COUNT 2.32 mill/uL (4.2-5.4); RED CELL DISTRIBUTION WIDTH 14.8 % (11.6-14.6)
[2022-09-03 05:41] LABS: CHLORIDE 96 mEq/L (98-107)
[2022-09-03 05:54] LABS: CREATINE KINASE 73 IU/L (26-192); CREATINE KINASE MB FRACTION < 1.0 ng/mL (0.5-3.6)
[2022-09-03] MEDS: HYDRALAZINE HCL 50MG TABLET PO SCH ×4 (06:00→23:08)
[2022-09-03] MEDS ORDERED: PIPERACILLIN/TAZOBACTAM 3.375 G in DEXTROSE 5% WATER 50 ML IV SCH (07:00)
[2022-09-03] MEDS ORDERED: CLOPIDOGREL 75MG TABLET PO SCH (09:00)
[2022-09-03] MEDS ORDERED: DEXTROSE 50% WATER 50ML SYRINGE IV PRN (09:30)
[2022-09-03] MEDS: CARVEDILOL 3.125 MG TABLET PO SCH ×3 (09:34→21:07)
[2022-09-03] MEDS: AMLODIPINE 5MG TABLET PO SCH (09:34)
[2022-09-03 10:45] VITALS: BP 123/82
[2022-09-03 11:00] VITALS: BP 123/82
[2022-09-03] MEDS: BLOOD SUGAR DIAGNOSTIC STRIP TEST SCH ×2 (11:40→16:40)
[2022-09-03] MEDS: INSULIN LISPRO (MEDIUM DOSE) 100 UNITS/ML SUBCUT SCH ×2 (11:40→16:40)
[2022-09-03 12:10] VITALS: BP 134/57
[2022-09-03] MEDS: NIFEDIPINE XL 90MG TAB PO SCH (12:45)
[2022-09-03] MEDS: LISINOPRIL 20MG TABLET PO SCH ×3 (12:45→21:06)
[2022-09-03] MEDS: CITRIC ACID/SODIUM CITRATE SOLN 30ML UDC PO SCH ×2 (12:49→17:07)
[2022-09-03 15:48] VITALS: BP 127/56
[2022-09-03] MEDS: ENOXAPARIN 30MG/0.3ML SYR SUBCUT SCH (16:03)
[2022-09-03] MEDS: PIPERACILLIN/TAZOBACTAM 3.375 G in DEXTROSE 5% WATER 50 ML IV SCH (17:07)
[2022-09-03 20:00] VITALS: BP 138/48
[2022-09-03] MEDS ORDERED: EPOETIN ALFA-EPBX 4,000 UNIT/ML VIAL SUBCUT SCH (21:00)
[2022-09-03] MEDS ORDERED: EPOETIN ALFA 10000UNITS/ML VIAL SUBCUT SCH (21:00)
[2022-09-03] MEDS: ATORVASTATIN CALCIUM 40MG TABLET PO SCH ×2 (21:06)
[2022-09-04] VITALS (14 sets, daily range): BP systolic 108–151; BP diastolic 40–79
[2022-09-04] MEDS: HYDRALAZINE HCL 50MG TABLET PO SCH ×3 (06:00→22:35)
[2022-09-04] MEDS: BLOOD SUGAR DIAGNOSTIC STRIP TEST SCH ×3 (06:06→16:40)
[2022-09-04] MEDS: INSULIN LISPRO (MEDIUM DOSE) 100 UNITS/ML SUBCUT SCH ×3 (06:06→16:40)
[2022-09-04 06:52] LABS: BASOPHILS % 0.9 % (0.0-2.0); EOSINOPHILS % 3.6 % (0.0-5.0); LYMPHOCYTES % 18.6 % (20.0-50.0); MEAN CORPUSCULAR HEMOGLOBIN 30.9 pg (28.0-32.0); MEAN CORPUSCULAR VOLUME 92.8 fL (81.0-99.0); MEAN PLATELET VOLUME 9.4 fl (7.4-10.4); MONOCYTES % 7.2 % (2.0-8.0); NEUTROPHILS % 69.7 % (40.0-76.0); PLATELET 237 x1000/uL (130-400); RED CELL DISTRIBUTION WIDTH 14.6 % (11.6-14.6)
[2022-09-04 06:56] LABS: HEMOGLOBIN. 6.8 g/dL (12.0-16.0)
[2022-09-04 06:57] LABS: HEMATOCRIT. 20.4 % (36.0-48.0)
[2022-09-04] MEDS: AMLODIPINE 5MG TABLET PO SCH (09:00)
[2022-09-04] MEDS: NIFEDIPINE XL 90MG TAB PO SCH (09:00)
[2022-09-04] MEDS: CARVEDILOL 3.125 MG TABLET PO SCH ×2 (09:00→20:33)
[2022-09-04] MEDS: PIPERACILLIN/TAZOBACTAM 3.375 G in DEXTROSE 5% WATER 50 ML IV SCH ×2 (09:00→20:23)
[2022-09-04] MEDS: CITRIC ACID/SODIUM CITRATE SOLN 30ML UDC PO SCH ×3 (09:00→18:16)
[2022-09-04] MEDS: LISINOPRIL 20MG TABLET PO SCH ×2 (09:00→20:33)
[2022-09-04 12:47] LABS: HEMOGLOBIN 6.7 g/dL (12.0-16.0)
[2022-09-04 12:48] LABS: HEMATOCRIT 20.2 % (36.0-48.0)
[2022-09-04] MEDS: ENOXAPARIN 30MG/0.3ML SYR SUBCUT SCH (16:30)
[2022-09-04] MEDS: EPOETIN ALFA-EPBX 4,000 UNIT/ML VIAL SUBCUT SCH (20:32)
[2022-09-04] MEDS: ATORVASTATIN CALCIUM 40MG TABLET PO SCH (20:32)
[2022-09-04] MEDS: GABAPENTIN 100MG CAPSULE PO SCH (20:35)
[2022-09-05] VITALS (9 sets, daily range): BP systolic 117–156; BP diastolic 50–69
[2022-09-05] MEDS: INSULIN LISPRO (MEDIUM DOSE) 100 UNITS/ML SUBCUT SCH ×3 (05:46→16:40)
[2022-09-05] MEDS: BLOOD SUGAR DIAGNOSTIC STRIP TEST SCH ×3 (05:46→16:40)
[2022-09-05] MEDS: HYDRALAZINE HCL 50MG TABLET PO SCH ×3 (05:52→21:12)
[2022-09-05 07:51] LABS: BASOPHILS % 0.7 % (0.0-2.0); EOSINOPHILS % 3.4 % (0.0-5.0); HEMATOCRIT. 24.7 % (36.0-48.0); HEMOGLOBIN. 8.3 g/dL (12.0-16.0); LYMPHOCYTES % 17.1 % (20.0-50.0); MEAN CORPUSCULAR HEMOGLOBIN 31.4 pg (28.0-32.0); MEAN CORPUSCULAR VOLUME 93.6 fL (81.0-99.0); MEAN PLATELET VOLUME 9.2 fl (7.4-10.4); MONOCYTES % 7.5 % (2.0-8.0); NEUTROPHILS % 71.3 % (40.0-76.0); PLATELET 233 x1000/uL (130-400); RED BLOOD CELL COUNT 2.64 mill/uL (4.2-5.4); RED CELL DISTRIBUTION WIDTH 14.8 % (11.6-14.6)
[2022-09-05 07:52] LABS: CHLORIDE 105 mEq/L (98-107)
[2022-09-05] MEDS: PIPERACILLIN/TAZOBACTAM 3.375 G in DEXTROSE 5% WATER 50 ML IV SCH ×2 (08:31→21:11)
[2022-09-05] MEDS: AMLODIPINE 5MG TABLET PO SCH (08:34)
[2022-09-05] MEDS: NIFEDIPINE XL 90MG TAB PO SCH (08:34)
[2022-09-05] MEDS: CARVEDILOL 3.125 MG TABLET PO SCH ×2 (08:34→21:12)
[2022-09-05] MEDS: CITRIC ACID/SODIUM CITRATE SOLN 30ML UDC PO SCH ×3 (08:34→17:43)
[2022-09-05] MEDS: LISINOPRIL 20MG TABLET PO SCH ×2 (08:34→21:11)
[2022-09-05] MEDS ORDERED: ALBUTEROL (0.083%) 2.5MG/3ML NEB HHN PRN (12:15)
[2022-09-05] MEDS ORDERED: IPRATROPIUM BROMIDE (0.02%) 0.5MG/2.5ML NEB HHN PRN (12:15)
[2022-09-05] MEDS ORDERED: NALOXONE HCL 0.4MG/ML VIAL IV PRN (13:15)
[2022-09-05] MEDS: HYDROCODONE/ACETAMINOPHEN 5/325MG TABLET PO PRN (13:28)
[2022-09-05] MEDS: ENOXAPARIN 30MG/0.3ML SYR SUBCUT SCH (17:42)
[2022-09-05] MEDS: GABAPENTIN 100MG CAPSULE PO SCH (21:11)
[2022-09-05] MEDS: ATORVASTATIN CALCIUM 40MG TABLET PO SCH (21:12)
[2022-09-06] VITALS (15 sets, daily range): BP systolic 130–163; BP diastolic 41–66
[2022-09-06] MEDS: HYDROCODONE/ACETAMINOPHEN 5/325MG TABLET PO PRN ×2 (00:28→09:55)
[2022-09-06] MEDS: BLOOD SUGAR DIAGNOSTIC STRIP TEST SCH ×3 (06:09→16:09)
[2022-09-06] MEDS: INSULIN LISPRO (MEDIUM DOSE) 100 UNITS/ML SUBCUT SCH ×3 (06:09→16:09)
[2022-09-06] MEDS: HYDRALAZINE HCL 50MG TABLET PO SCH ×3 (06:12→22:05)
[2022-09-06 06:38] LABS: BASOPHILS % 1.1 % (0.0-2.0); EOSINOPHILS % 4.8 % (0.0-5.0); HEMATOCRIT. 23.1 % (36.0-48.0); LYMPHOCYTES % 22.1 % (20.0-50.0); MEAN CORPUSCULAR HEMOGLOBIN 31.8 pg (28.0-32.0); MEAN CORPUSCULAR VOLUME 92.3 fL (81.0-99.0); MEAN PLATELET VOLUME 9.4 fl (7.4-10.4); MONOCYTES % 7.7 % (2.0-8.0); NEUTROPHILS % 64.3 % (40.0-76.0); PLATELET 226 x1000/uL (130-400); RED BLOOD CELL COUNT 2.51 mill/uL (4.2-5.4); RED CELL DISTRIBUTION WIDTH 14.7 % (11.6-14.6)
[2022-09-06] MEDS: AMLODIPINE 5MG TABLET PO SCH (09:00)
[2022-09-06] MEDS: CARVEDILOL 3.125 MG TABLET PO SCH ×2 (09:00→21:04)
[2022-09-06] MEDS: LISINOPRIL 20MG TABLET PO SCH ×2 (09:00→21:03)
[2022-09-06] MEDS: NIFEDIPINE XL 90MG TAB PO SCH (09:00)
[2022-09-06] MEDS: CITRIC ACID/SODIUM CITRATE SOLN 30ML UDC PO SCH ×3 (09:53→17:21)
[2022-09-06] MEDS: PIPERACILLIN/TAZOBACTAM 3.375 G in DEXTROSE 5% WATER 50 ML IV SCH ×2 (09:53→21:13)
[2022-09-06 11:33] LABS: BG BASE EXCESS 3.9 mmol/L (-2.0-2.0); BG CARBOXYHEMOGLOBIN 0.8 % (0.5-1.5); BG DEOXYHEMOGLOBIN 6.5 % (0.0-5.0); BG FRACTION INSPIRED OXYGEN 21; BG HCO3 ACT 27.7 mmol/L (22.0-26.0); BG METHEMOGLOBIN 0.2 % (0.0-1.5); BG OXYGEN SATURATION 93.4 % (92.0-98.5); BG OXYHEMOGLOBIN 92.5 % (94.0-97.0); BG PCO2 38.5 mmHg (35.0-45.0); BG PH 7.475 (7.350-7.450); BG PO2 68.1 mmHg (75.0-100.0); BG SAMPLE SITE LEFT BRACHIAL; BG TOTAL HEMOGLOBIN 8.8 g/dL (12.0-18.0); BG VENT MODE ROOM AIR
[2022-09-06] MEDS: ENOXAPARIN 30MG/0.3ML SYR SUBCUT SCH (16:30)
[2022-09-06] MEDS: GABAPENTIN 100MG CAPSULE PO SCH (21:03)
[2022-09-06] MEDS: ATORVASTATIN CALCIUM 40MG TABLET PO SCH (21:04)
[2022-09-06] MEDS: EPOETIN ALFA-EPBX 4,000 UNIT/ML VIAL SUBCUT SCH (21:14)
[2022-09-07] VITALS: BP 156/62
[2022-09-07 04:00] VITALS: BP 162/66
[2022-09-07] MEDS: HYDRALAZINE HCL 50MG TABLET PO SCH ×2 (05:05→13:33)
[2022-09-07] MEDS: BLOOD SUGAR DIAGNOSTIC STRIP TEST SCH ×3 (06:05→16:21)
[2022-09-07] MEDS: INSULIN LISPRO (MEDIUM DOSE) 100 UNITS/ML SUBCUT SCH ×3 (06:06→16:21)
[2022-09-07 06:42] LABS: EOSINOPHILS % 3.9 % (0.0-5.0); HEMATOCRIT. 23.2 % (36.0-48.0); LYMPHOCYTES % 19.6 % (20.0-50.0); MEAN CORPUSCULAR VOLUME 92.3 fL (81.0-99.0); MEAN PLATELET VOLUME 9.1 fl (7.4-10.4); MONOCYTES % 8.4 % (2.0-8.0); NEUTROPHILS % 67.1 % (40.0-76.0); PLATELET 215 x1000/uL (130-400); RED BLOOD CELL COUNT 2.51 mill/uL (4.2-5.4); RED CELL DISTRIBUTION WIDTH 14.4 % (11.6-14.6)
[2022-09-07 08:00] VITALS: BP 135/66
[2022-09-07] MEDS: PIPERACILLIN/TAZOBACTAM 3.375 G in DEXTROSE 5% WATER 50 ML IV SCH (08:41)
[2022-09-07] MEDS: AMLODIPINE 5MG TABLET PO SCH (08:42)
[2022-09-07] MEDS: LISINOPRIL 20MG TABLET PO SCH (08:42)
[2022-09-07] MEDS: CITRIC ACID/SODIUM CITRATE SOLN 30ML UDC PO SCH ×3 (08:42→16:21)
[2022-09-07] MEDS: CARVEDILOL 3.125 MG TABLET PO SCH (08:43)
[2022-09-07] MEDS: NIFEDIPINE XL 90MG TAB PO SCH (11:28)
[2022-09-07 12:00] VITALS: BP 142/42
[2022-09-07] MEDS: ENOXAPARIN 30MG/0.3ML SYR SUBCUT SCH (16:21)
[2022-09-07 17:12] VITALS: BP 142/42
== END 2022-09-07 16:06 | disposition home health service (06) | DRG 208 ==
LOC: ER 10:40 → EDBEDREQ 11:50 → 7EST 12:54 → EDBEDREQ 12:56 → EDBEDREQTM 12:56 → EDBEDREQSVC 17:55 → 7EST 09-05 09:29
PROVIDERS: ADMIT Internal Medicine; ATTEND Internal Medicine
PROC: 5A1D70Z Performance of Urinary Filtration, Intermittent, Less than 6 Hours Per Day (ICD-10-PCS; 2022-09-02)
PROC: 5A1935Z Respiratory Ventilation, Less than 24 Consecutive Hours (ICD-10-PCS; 2022-09-02)
PROC: 5A1D70Z Performance of Urinary Filtration, Intermittent, Less than 6 Hours Per Day (ICD-10-PCS; 2022-09-04)
PROC: 30233N1 Transfusion of Nonautologous Red Blood Cells into Peripheral Vein, Percutaneous Approach (ICD-10-PCS; 2022-09-05)
PROC: 5A1D70Z Performance of Urinary Filtration, Intermittent, Less than 6 Hours Per Day (ICD-10-PCS; principal; 2022-09-06)
DX: J18.9 Pneumonia, unspecified organism (principal); N18.6 End stage renal disease; J96.01 Acute respiratory failure with hypoxia; I12.0 Hypertensive chronic kidney disease with stage 5 chronic kidney disease or end stage renal disease; J81.1 Chronic pulmonary edema; E87.70 Fluid overload, unspecified; E87.5 Hyperkalemia; Z20.822 Contact with and (suspected) exposure to COVID-19; D63.8 Anemia in other chronic diseases classified elsewhere; E11.22 Type 2 diabetes mellitus with diabetic chronic kidney disease; E11.51 Type 2 diabetes mellitus with diabetic peripheral angiopathy without gangrene; E78.5 Hyperlipidemia, unspecified; Z99.2 Dependence on renal dialysis; Z88.6 Allergy status to analgesic agent; Z98.61 Coronary angioplasty status; Z86.73 Personal history of transient ischemic attack (TIA), and cerebral infarction without residual deficits; Z82.49 Family history of ischemic heart disease and other diseases of the circulatory system
CPT/HCPCS: 36415; 36600; 71045; 74176; 80048; 80053; 80305; 80320; 82375; 82550; 82553; 82805; 82962; 83735; 83880; 84484; 85014; 85018; 85025; 86705; 86709; 86803; 86850; 86870; 86900; 86920; 87340; 87426; 90935; 93005; 97162; 99285; C1893; C9803; J0885; J1650; J1815; J2270; J2405; J2543; J7060; P9016; G0480

== ENCOUNTER 2022-09-12 07:06 | Inpatient (IN) | payer MEDICARE, MEDICAID ==
[~2022-09-12] VITALS: Ht 160 cm; Wt 78.5 kg
[2022-09-12 09:00] LABS: BASOPHILS % 0.9 % (0.0-2.0); EOSINOPHILS % 1.5 % (0.0-5.0); HEMATOCRIT. 23.8 % (36.0-48.0); HEMOGLOBIN. 7.9 g/dL (12.0-16.0); LYMPHOCYTES % 10.5 % (20.0-50.0); MEAN CORPUSCULAR HEMOGLOBIN 31.6 pg (28.0-32.0); MEAN CORPUSCULAR VOLUME 95.4 fL (81.0-99.0); MEAN PLATELET VOLUME 9.1 fl (7.4-10.4); MONOCYTES % 6.4 % (2.0-8.0); NEUTROPHILS % 80.7 % (40.0-76.0); PLATELET 265 x1000/uL (130-400); RED CELL DISTRIBUTION WIDTH 15.6 % (11.6-14.6)
[2022-09-12 09:09] LABS: CHLORIDE 105 mEq/L (98-107)
[2022-09-12] MEDS ORDERED: FUROSEMIDE 40MG/4ML VIAL IVP ONE (09:15)
[2022-09-12] MEDS ORDERED: ENALAPRIL 2.5MG/2ML VIAL 2ML IV ONE (09:15)
[2022-09-12] MEDS: ENALAPRIL 1.25MG/ML VIAL 1ML IV NR ×2 (09:30→11:03)
[2022-09-12] MEDS ORDERED: FUROSEMIDE 40MG/4ML VIAL IVP NR (11:00)
[2022-09-12] MEDS ORDERED: ACETAMINOPHEN 325MG TABLET PO PRN (12:15)
[2022-09-12] MEDS ORDERED: HYDRALAZINE HCL 100MG TABLET PO NR (12:15)
[2022-09-12] MEDS ORDERED: ONDANSETRON HCL 4MG/2ML INJ IV PRN (12:15)
[2022-09-12] MEDS: NIFEDIPINE XL 60MG TAB PO SCH ×2 (13:00→22:39)
[2022-09-12 20:59] LABS: HEPATITIS B SURFACE ANTIGEN NEGATIVE
[2022-09-12] MEDS ORDERED: EPOETIN ALFA-EPBX 4,000 UNIT/ML VIAL SUBCUT SCH (21:00)
[2022-09-12] MEDS ORDERED: HYDRALAZINE HCL 100MG TABLET PO SCH (22:00)
[2022-09-12] MEDS: HYDRALAZINE HCL 100MG TABLET PO SCH (22:40)
[2022-09-13] VITALS (8 sets, daily range): BP systolic 117–141; BP diastolic 49–79
[2022-09-13] MEDS: HYDRALAZINE HCL 100MG TABLET PO SCH ×3 (09:50→22:00)
[2022-09-13] MEDS: NIFEDIPINE XL 60MG TAB PO SCH ×2 (09:50→21:00)
[2022-09-13 13:46] LABS: BASOPHILS % 0.9 % (0.0-2.0); EOSINOPHILS % 2.8 % (0.0-5.0); HEMATOCRIT. 23.6 % (36.0-48.0); HEMOGLOBIN. 7.7 g/dL (12.0-16.0); LYMPHOCYTES % 14.9 % (20.0-50.0); MEAN CORPUSCULAR HEMOGLOBIN 31.5 pg (28.0-32.0); MEAN CORPUSCULAR VOLUME 96.1 fL (81.0-99.0); MEAN PLATELET VOLUME 8.8 fl (7.4-10.4); MONOCYTES % 8.2 % (2.0-8.0); NEUTROPHILS % 73.2 % (40.0-76.0); PLATELET 266 x1000/uL (130-400); RED BLOOD CELL COUNT 2.45 mill/uL (4.2-5.4); RED CELL DISTRIBUTION WIDTH 15.6 % (11.6-14.6)
[2022-09-14] VITALS (10 sets, daily range): BP systolic 96–156; BP diastolic 56–75
[2022-09-14] MEDS: HYDRALAZINE HCL 100MG TABLET PO SCH ×3 (06:25→21:15)
[2022-09-14] MEDS: NIFEDIPINE XL 60MG TAB PO SCH ×2 (08:54→21:15)
[2022-09-15] VITALS (15 sets, daily range): BP systolic 111–147; BP diastolic 49–79
[2022-09-15] MEDS: HYDRALAZINE HCL 100MG TABLET PO SCH (07:00)
[2022-09-15] MEDS: NIFEDIPINE XL 60MG TAB PO SCH (09:00)
== END 2022-09-15 20:22 | disposition home or self-care (01) | DRG 640 ==
LOC: ER 07:06 → MICUSO 11:42 → EDBEDREQTM 11:56 → EDBEDREQ 11:56 → ENRESERV 09-13 21:28 → 5EST 09-14 00:31
PROVIDERS: ADMIT Internal Medicine; ATTEND Internal Medicine
PROC: 5A1D70Z Performance of Urinary Filtration, Intermittent, Less than 6 Hours Per Day (ICD-10-PCS; principal; 2022-09-13)
PROC: 5A1D70Z Performance of Urinary Filtration, Intermittent, Less than 6 Hours Per Day (ICD-10-PCS; 2022-09-15)
DX: E87.70 Fluid overload, unspecified (principal); J96.00 Acute respiratory failure, unspecified whether with hypoxia or hypercapnia; N18.6 End stage renal disease; I13.2 Hypertensive heart and chronic kidney disease with heart failure and with stage 5 chronic kidney disease, or end stage renal disease; N25.81 Secondary hyperparathyroidism of renal origin; E66.9 Obesity, unspecified; E11.22 Type 2 diabetes mellitus with diabetic chronic kidney disease; I50.9 Heart failure, unspecified; D63.8 Anemia in other chronic diseases classified elsewhere; E78.5 Hyperlipidemia, unspecified; E11.51 Type 2 diabetes mellitus with diabetic peripheral angiopathy without gangrene; R79.89 Other specified abnormal findings of blood chemistry; G89.29 Other chronic pain; F32.A Depression, unspecified; Z79.899 Other long term (current) drug therapy; Z68.30 Body mass index [BMI] 30.0-30.9, adult; Z99.2 Dependence on renal dialysis; Z91.15 Patient's noncompliance with renal dialysis; Z88.6 Allergy status to analgesic agent; Z86.73 Personal history of transient ischemic attack (TIA), and cerebral infarction without residual deficits; Z82.49 Family history of ischemic heart disease and other diseases of the circulatory system
CPT/HCPCS: 36415; 71045; 80048; 80053; 83880; 84145; 84484; 85025; 86705; 86709; 86803; 87340; 90935; 93005; 96374; 96375; 99291; J0885; J1940; J3490

== ENCOUNTER 2023-10-15 11:32 | Emergency (ER) | payer MEDICARE, MEDICAID ==
[~2023-10-15] VITALS: Ht 165.1 cm; Wt 68.0 kg
[~2023-10-15 11:32] MED LIST changes: -AMLO5TAB4 PO; -CLON1PAT38 TD; +CLON1PAT41 TD; +CLOP-31 PO
[2023-10-15 11:33] VITALS: O2SAT 96
[2023-10-15] MEDS: MORPHINE SULFATE 4 MG/ML CPJ (NOT FOR IM USE) IV ONE ×2 (12:18→17:38)
[2023-10-15] MEDS: HYDROCODONE/ACETAMINOPHEN 5/325MG TABLET PO NR (17:20)
[2023-10-15] MEDS: LIDOCAINE HCL 1% 20ML VIAL (Pyxis) INJ INFIL NR (17:21)
[2023-10-15 19:30] VITALS: BP 171/70; PULSE 68; RESP 16; TEMP 98
== END 2023-10-15 19:32 | disposition home or self-care (01) ==
LOC: ER 11:32
DX: S52.611A Displaced fracture of right ulna styloid process, initial encounter for closed fracture (principal); S52.181A Other fracture of upper end of right radius, initial encounter for closed fracture; J45.909 Unspecified asthma, uncomplicated; I50.9 Heart failure, unspecified; I13.0 Hypertensive heart and chronic kidney disease with heart failure and stage 1 through stage 4 chronic kidney disease, or unspecified chronic kidney disease; Z86.73 Personal history of transient ischemic attack (TIA), and cerebral infarction without residual deficits; Z88.8 Allergy status to other drugs, medicaments and biological substances; Z98.890 Other specified postprocedural states; Z99.2 Dependence on renal dialysis
CPT/HCPCS: 99285; 96374; 73070; 73090; 73120; 96376; J3490; J2270

== ENCOUNTER 2023-10-30 16:36 | Emergency (ER) | payer MEDICARE, MEDICAID ==
[~2023-10-30] VITALS: Ht 160 cm; Wt 81.0 kg
[~2023-10-30 16:36] MED LIST changes: -HYDR-4135 MT; +HYDR50TA40 MT
[2023-10-30 16:46] VITALS: TEMP 98.2; O2SAT 98
[2023-10-30 17:34] LABS: BASOPHILS % 0.8 % (0.0-2.0); HEMATOCRIT. 35.7 % (36.0-48.0); HEMOGLOBIN. 11.6 g/dL (12.0-16.0); MEAN CORPUSCULAR HEMOGLOBIN 29.1 pg (28.0-32.0); MEAN CORPUSCULAR HGB CONC 32.4 g/dL (31.0-37.0); MEAN PLATELET VOLUME 8.8 fl (7.4-10.4); NEUTROPHILS % 75.2 % (40.0-76.0); PLATELET 275 x1000/uL (130-400); RED BLOOD CELL COUNT 3.97 mill/uL (4.2-5.4); RED CELL DISTRIBUTION WIDTH 19.8 % (11.6-14.6); WHITE BLOOD COUNT 7.7 x1000/uL (4.5-11.0)
[2023-10-30 17:53] LABS: ALANINE AMINOTRANSFERASE 9 IU/L (10-49); ALBUMIN 4.5 g/dL (3.2-4.8); ASPARTATE AMINOTRANSFERASE 16 IU/L (<34); BILIRUBIN TOTAL 0.3 mg/dL (0.1-1.0); CALCIUM 8.9 mg/dL (8.7-10.4); CARBON DIOXIDE 35 mEq/L (21-32); CHLORIDE 94 mEq/L (98-107); CREATININE 3.7 mg/dL (0.6-1.0); GLUCOSE 101 mg/dL (70-105); POTASSIUM 3.9 mEq/L (3.5-5.1); PROTEIN TOTAL 7.5 g/dL (6.0-8.3); SODIUM 136 mEq/L (136-145); UREA NITROGEN BLOOD 21 mg/dL (9-23)
[2023-10-30 18:05] VITALS: BP 163/52; PULSE 65; RESP 18
[2023-10-30] MEDS: HYDROCODONE/ACETAMINOPHEN 5/325MG TABLET PO ONE (18:05)
[2023-10-30] MEDS ORDERED: HYDR-4001 MT (18:14)
== END 2023-10-31 01:31 | disposition home or self-care (01) ==
LOC: ER 16:36
DX: S52.501A Unspecified fracture of the lower end of right radius, initial encounter for closed fracture (principal); I12.0 Hypertensive chronic kidney disease with stage 5 chronic kidney disease or end stage renal disease; N18.6 End stage renal disease; J45.909 Unspecified asthma, uncomplicated; Z99.2 Dependence on renal dialysis; W18.39XA Other fall on same level, initial encounter; Y93.89 Activity, other specified; Y92.89 Other specified places as the place of occurrence of the external cause; Y99.8 Other external cause status
CPT/HCPCS: 29125; 36415; 80053; 85025; 99283

== ENCOUNTER 2024-06-27 03:49 | Inpatient (IN) | payer MEDICARE, MEDICAID ==
[~2024-06-27] VITALS: Ht 167.6 cm; Wt 81.6 kg
[~2024-06-27 03:49] MED LIST changes: +HYDR-4001 MT
[2024-06-27 04:35] LABS: HEMATOCRIT. 26.3 % (36.0-48.0); HEMOGLOBIN. 8.6 g/dL (12.0-16.0); MEAN CORPUSCULAR HEMOGLOBIN 30.2 pg (28.0-32.0); MEAN CORPUSCULAR HGB CONC 32.7 g/dL (31.0-37.0); MEAN CORPUSCULAR VOLUME 92.4 fL (81.0-99.0); MEAN PLATELET VOLUME 9.1 fl (7.4-10.4); PLATELET 204 x1000/uL (130-400); RED BLOOD CELL COUNT 2.85 mill/uL (4.2-5.4); RED CELL DISTRIBUTION WIDTH 19.5 % (11.6-14.6); WHITE BLOOD COUNT 9.1 x1000/uL (4.5-11.0)
[2024-06-27 04:38] LABS: CHLORIDE 97 mEq/L (98-107)
[2024-06-27 04:39] LABS: CARBON DIOXIDE 35 mEq/L (21-32); POTASSIUM 4.8 mEq/L (3.5-5.1); SODIUM 141 mEq/L (136-145)
[2024-06-27 04:40] LABS: CALCIUM 9.4 mg/dL (8.7-10.4)
[2024-06-27 04:44] LABS: GLUCOSE 122 mg/dL (70-105)
[2024-06-27 04:45] LABS: UREA NITROGEN BLOOD 36 mg/dL (9-23)
[2024-06-27 04:46] LABS: ALANINE AMINOTRANSFERASE < 7 IU/L (10-49); ALBUMIN 4.8 g/dL (3.2-4.8); ASPARTATE AMINOTRANSFERASE 11 IU/L (<34)
[2024-06-27 04:47] LABS: BILIRUBIN DIRECT 0.2 mg/dL (<=3.0); BILIRUBIN TOTAL 0.5 mg/dL (0.1-1.0); PROTEIN TOTAL 8.3 g/dL (6.0-8.3)
[2024-06-27 05:01] LABS: CREATININE 5.9 mg/dL (0.6-1.0)
[2024-06-27 05:23] LABS: DIFFERENTIAL COMMENT 1
[2024-06-27 05:38] LABS: INR 1.1; PROTHROMBIN TIME 12.3 sec (9.6-11.0)
[2024-06-27] MEDS: ONDANSETRON HCL 4MG/2ML INJ IV STA (06:16)
[2024-06-27] MEDS: MORPHINE SULFATE 4 MG/ML INJ (FOR IV/IM USE) IV STA (06:16)
[2024-06-27] MEDS: FAMOTIDINE 20MG/2ML VIAL IV STA (06:20)
[2024-06-27] MEDS ORDERED: IOHEXOL-350 100 ML BOTTLE ONE (06:47)
[2024-06-27 06:50] LABS: ANISOCYTOSIS 2+; PLATELET ESTIMATE NORMAL
[2024-06-27 08:00] VITALS: BP 158/73; PULSE 82; RESP 16; TEMP 36.974
[2024-06-27 09:00] VITALS: BP 158/73; PULSE 86; RESP 15; TEMP 37.05852; O2SAT 99
[2024-06-27] MEDS ORDERED: ONDANSETRON HCL 4MG/2ML INJ IV PRN (10:45)
[2024-06-27] MEDS: LOSARTAN 50 MG TABLET PO SCH (11:08)
[2024-06-27] MEDS: ACETAMINOPHEN 325MG TABLET PO PRN (11:08)
[2024-06-27 12:00] VITALS: BP 122/63; PULSE 71; RESP 20; TEMP 36.89184; O2SAT 100
[2024-06-27 14:14] LABS: CLARITY URINE CLEAR (CLEAR); COLOR URINE YELLOW (YELLOW); GLUCOSE URINE TRACE (NEGATIVE); KETONES URINE NEGATIVE (NEGATIVE); LEUKOCYTE ESTERASE URINE NEGATIVE (NEGATIVE); NITRITE URINE NEGATIVE (NEGATIVE); OCCULT BLOOD URINE NEGATIVE (NEGATIVE); PH URINE >=9.0 (4.5-8.0); PROTEIN URINE 3+ (NEGATIVE); SPECIFIC GRAVITY URINE 1.015 (1.005-1.030); UROBILINOGEN URINE 0.2 E.U./dL (0.2-1.0)
[2024-06-27 14:28] LABS: BACTERIA URINE 1+; RBC URINE 0-2 /hpf (0-2); SQUAMOUS EPITHELIAL CELL URINE 2+ /lpf (RARE/1+); WBC URINE 0-2 /hpf (0-2); YEAST URINE NONE SEEN
[2024-06-27 16:00] VITALS: BP 152/68; PULSE 78; RESP 22; TEMP 36.83628; O2SAT 94
[2024-06-27 20:00] VITALS: BP 153/69; PULSE 74; RESP 18; TEMP 38.00304; O2SAT 100
[2024-06-27] MEDS: CARVEDILOL 12.5MG TABLET PO SCH (21:42)
[2024-06-27] MEDS ORDERED: CEFEPIME 1GM IN DEXT 5% 50ML IV SCH (23:15)
[2024-06-28] VITALS: BP 155/70; PULSE 67; RESP 18; TEMP 37.05852; O2SAT 95
[2024-06-28] MEDS: HYDROCODONE/ACETAMINOPHEN 5/325MG TABLET PO PRN ×2 (00:36→11:24)
[2024-06-28] MEDS: CEFEPIME 1GM/50ML 50 ML IV SCH ×2 (01:16→21:52)
[2024-06-28] MEDS: VANCOMYCIN 1.5GM PMX (XELLIA) 300 ML IV SCH (01:31)
[2024-06-28 04:00] VITALS: BP 156/71; PULSE 69; RESP 18; TEMP 37.16964; O2SAT 93
[2024-06-28 07:34] LABS: BASOPHILS % 0.8 % (0.0-2.0); EOSINOPHILS % 0.6 % (0.0-5.0); HEMATOCRIT. 23.9 % (36.0-48.0); HEMOGLOBIN. 7.8 g/dL (12.0-16.0); LYMPHOCYTES % 7.6 % (20.0-50.0); MEAN CORPUSCULAR HEMOGLOBIN 30.2 pg (28.0-32.0); MEAN CORPUSCULAR HGB CONC 32.4 g/dL (31.0-37.0); MEAN CORPUSCULAR VOLUME 93.1 fL (81.0-99.0); MEAN PLATELET VOLUME 9.4 fl (7.4-10.4); MONOCYTES % 8.4 % (2.0-8.0); NEUTROPHILS % 82.6 % (40.0-76.0); PLATELET 178 x1000/uL (130-400); RED BLOOD CELL COUNT 2.57 mill/uL (4.2-5.4); WHITE BLOOD COUNT 10.8 x1000/uL (4.5-11.0)
[2024-06-28 07:43] LABS: CHLORIDE 93 mEq/L (98-107); POTASSIUM 5.7 mEq/L (3.5-5.1); SODIUM 136 mEq/L (136-145)
[2024-06-28 07:44] LABS: CALCIUM 9.1 mg/dL (8.7-10.4); CARBON DIOXIDE 30 mEq/L (21-32)
[2024-06-28 07:49] LABS: GLUCOSE 79 mg/dL (70-105); UREA NITROGEN BLOOD 57 mg/dL (9-23)
[2024-06-28 07:51] LABS: ALANINE AMINOTRANSFERASE < 7 IU/L (10-49); ALBUMIN 4.1 g/dL (3.2-4.8); ASPARTATE AMINOTRANSFERASE 9 IU/L (<34); BILIRUBIN DIRECT 0.1 mg/dL (<=3.0); BILIRUBIN TOTAL 0.3 mg/dL (0.1-1.0); PROTEIN TOTAL 7.5 g/dL (6.0-8.3)
[2024-06-28 07:52] LABS: CREATININE 8.3 mg/dL (0.6-1.0)
[2024-06-28 08:00] VITALS: BP 180/71; PULSE 66; RESP 22; TEMP 36.61404; O2SAT 100
[2024-06-28] MEDS ORDERED: NALOXONE HCL 0.4MG/ML VIAL IV PRN (11:30)
[2024-06-28 12:00] VITALS: BP 160/71; PULSE 72; RESP 22; TEMP 36.61404; O2SAT 100
[2024-06-28 12:45] LABS: HEPATITIS B SURFACE ANTIGEN NEGATIVE (Negative)
[2024-06-28 13:06] LABS: HEPATITIS A AB IGM NEGATIVE (Negative)
[2024-06-28 13:07] LABS: HEPATITIS B CORE AB IGM NEGATIVE (Negative); HEPATITIS C AB NON REACTIVE (Neg) (Negative)
[2024-06-28] MEDS ORDERED: SODIUM POLYSTYRENE SULFONATE 15 G/60 ML BOT PO ONE (15:45)
[2024-06-28 16:00] VITALS: BP 146/61; PULSE 65; RESP 18; TEMP 36.83628; O2SAT 100
[2024-06-28] MEDS: SODIUM ZIRCONIUM CYCLOSILICATE 10GM/PACKET PO NR (17:26)
[2024-06-28 20:00] VITALS: BP 153/50; PULSE 72; RESP 18; TEMP 37.89192; O2SAT 94
[2024-06-29] VITALS (14 sets, daily range): BP systolic 117–177; BP diastolic 58–82; PULSE 59–71; RESP 12–21; TEMP 36.22512–37.55856; O2SAT 95–100
[2024-06-29 06:36] LABS: CALCIUM 9.3 mg/dL (8.7-10.4); POTASSIUM 6.1 mEq/L (3.5-5.1)
[2024-06-29 06:48] LABS: EOSINOPHILS % 3.9 % (0.0-5.0); HEMATOCRIT. 21.2 % (36.0-48.0); LYMPHOCYTES % 14.5 % (20.0-50.0); MEAN CORPUSCULAR HGB CONC 32.9 g/dL (31.0-37.0); MEAN CORPUSCULAR VOLUME 91.2 fL (81.0-99.0); MEAN PLATELET VOLUME 9.4 fl (7.4-10.4); MONOCYTES % 12.5 % (2.0-8.0); NEUTROPHILS % 68.1 % (40.0-76.0); PLATELET 165 x1000/uL (130-400); RED BLOOD CELL COUNT 2.32 mill/uL (4.2-5.4); RED CELL DISTRIBUTION WIDTH 19.2 % (11.6-14.6)
[2024-06-29 07:19] LABS: CREATININE 10.1 mg/dL (0.6-1.0)
[2024-06-29] MEDS: MORPHINE SULFATE 2 MG/ML INJ (NOT FOR IM USE) IV SCH (17:20)
[2024-06-30] VITALS (15 sets, daily range): BP systolic 138–188; BP diastolic 61–81; PULSE 61–67; RESP 11–27; TEMP 36.6696–36.9474; O2SAT 96–100
[2024-06-30] MEDS: LOSARTAN 100 MG TABLET PO SCH (12:00)
[2024-06-30 12:56] LABS: BASOPHILS % 0.5 % (0.0-2.0); HEMATOCRIT. 23.3 % (36.0-48.0); HEMOGLOBIN. 7.4 g/dL (12.0-16.0); LYMPHOCYTES % 17.4 % (20.0-50.0); MEAN CORPUSCULAR HEMOGLOBIN 29.2 pg (28.0-32.0); MEAN CORPUSCULAR HGB CONC 31.8 g/dL (31.0-37.0); MEAN CORPUSCULAR VOLUME 91.6 fL (81.0-99.0); MEAN PLATELET VOLUME 9.2 fl (7.4-10.4); MONOCYTES % 8.5 % (2.0-8.0); NEUTROPHILS % 69.6 % (40.0-76.0); PLATELET 210 x1000/uL (130-400); RED BLOOD CELL COUNT 2.55 mill/uL (4.2-5.4); RED CELL DISTRIBUTION WIDTH 18.5 % (11.6-14.6); WHITE BLOOD COUNT 6.8 x1000/uL (4.5-11.0)
[2024-06-30 13:08] LABS: CARBON DIOXIDE 28 mEq/L (21-32); CHLORIDE 97 mEq/L (98-107); POTASSIUM 5.4 mEq/L (3.5-5.1); SODIUM 138 mEq/L (136-145)
[2024-06-30 13:09] LABS: CALCIUM 9.1 mg/dL (8.7-10.4)
[2024-06-30 13:13] LABS: GLUCOSE 80 mg/dL (70-105)
[2024-06-30 13:14] LABS: UREA NITROGEN BLOOD 68 mg/dL (9-23)
[2024-06-30] MEDS: LACTULOSE 20G/30ML UDC PO NR (13:14)
[2024-06-30 14:10] LABS: CREATININE 9.4 mg/dL (0.6-1.0)
[2024-06-30 14:12] LABS: PHOSPHORUS 8.5 mg/dL (2.5-4.9)
[2024-06-30] MEDS: HYDRALAZINE HCL 10MG TABLET PO PRN (16:27)
[2024-06-30] MEDS: EPOETIN ALFA-EPBX 4,000 UNIT/ML VIAL SUBCUT SCH (21:29)
[2024-07-01] VITALS: BP 155/99; PULSE 65; RESP 18; TEMP 36.78072; O2SAT 95
[2024-07-01 04:00] VITALS: BP 143/60; PULSE 64; RESP 16; TEMP 36.6696; O2SAT 95
[2024-07-01 06:33] LABS: BASOPHILS % 0.4 % (0.0-2.0); EOSINOPHILS % 4.1 % (0.0-5.0); HEMATOCRIT. 24.3 % (36.0-48.0); HEMOGLOBIN. 7.9 g/dL (12.0-16.0); LYMPHOCYTES % 13.2 % (20.0-50.0); MEAN CORPUSCULAR HEMOGLOBIN 29.8 pg (28.0-32.0); MEAN CORPUSCULAR HGB CONC 32.4 g/dL (31.0-37.0); MEAN PLATELET VOLUME 9.2 fl (7.4-10.4); MONOCYTES % 7.7 % (2.0-8.0); NEUTROPHILS % 74.6 % (40.0-76.0); PLATELET 228 x1000/uL (130-400); RED BLOOD CELL COUNT 2.65 mill/uL (4.2-5.4); RED CELL DISTRIBUTION WIDTH 18.8 % (11.6-14.6)
[2024-07-01 06:43] LABS: CARBON DIOXIDE 26 mEq/L (21-32); CHLORIDE 98 mEq/L (98-107); POTASSIUM 5.2 mEq/L (3.5-5.1); SODIUM 138 mEq/L (136-145)
[2024-07-01 06:44] LABS: CALCIUM 10.1 mg/dL (8.7-10.4)
[2024-07-01 06:49] LABS: GLUCOSE 82 mg/dL (70-105)
[2024-07-01 06:50] LABS: UREA NITROGEN BLOOD 63 mg/dL (9-23)
[2024-07-01 07:00] LABS: CREATININE 8.9 mg/dL (0.6-1.0)
[2024-07-01 08:00] VITALS: BP 186/70; PULSE 65; RESP 12; TEMP 36.9474; O2SAT 96
[2024-07-01] MEDS ORDERED: SODIUM POLYSTYRENE SULFONATE 15 G/60 ML BOT PO ONE (09:00)
[2024-07-01] MEDS ORDERED: SODIUM ZIRCONIUM CYCLOSILICATE 10GM/PACKET PO ONE (09:00)
[2024-07-01 12:00] VITALS: BP 155/58; PULSE 66; RESP 13; TEMP 36.78072; O2SAT 95
[2024-07-01] MEDS: SODIUM ZIRCONIUM CYCLOSILICATE 10GM/PACKET PO NR (14:28)
[2024-07-01 16:00] VITALS: BP 154/88; PULSE 73; RESP 20; TEMP 36.55848; O2SAT 90
[2024-07-01 20:00] VITALS: BP 174/67; PULSE 76; RESP 13; TEMP 36.16956; O2SAT 98
[2024-07-02] VITALS (11 sets, daily range): BP systolic 100–158; BP diastolic 38–103; PULSE 60–78; RESP 13–24; TEMP 36.05844–37.2252; O2SAT 93–97
[2024-07-02] MEDS: VANCOMYCIN 750MG PMX (XELLIA) 150 ML IV SCH (21:20)
[2024-07-03] VITALS (14 sets, daily range): BP systolic 103–187; BP diastolic 40–90; PULSE 70–81; RESP 15–20; TEMP 36.28068–37.33632; O2SAT 16–98
[2024-07-03 06:35] LABS: BASOPHILS % 0.8 % (0.0-2.0); CALCIUM 10.2 mg/dL (8.7-10.4); CARBON DIOXIDE 23 mEq/L (21-32); CHLORIDE 97 mEq/L (98-107); EOSINOPHILS % 3.3 % (0.0-5.0); HEMATOCRIT. 24.3 % (36.0-48.0); LYMPHOCYTES % 10.1 % (20.0-50.0); MEAN CORPUSCULAR VOLUME 90.8 fL (81.0-99.0); MONOCYTES % 6.1 % (2.0-8.0); NEUTROPHILS % 79.7 % (40.0-76.0); PLATELET 282 x1000/uL (130-400); POTASSIUM 4.8 mEq/L (3.5-5.1); RED BLOOD CELL COUNT 2.68 mill/uL (4.2-5.4); RED CELL DISTRIBUTION WIDTH 18.6 % (11.6-14.6); SODIUM 135 mEq/L (136-145); WHITE BLOOD COUNT 9.6 x1000/uL (4.5-11.0)
[2024-07-03 06:41] LABS: GLUCOSE 76 mg/dL (70-105); UREA NITROGEN BLOOD 52 mg/dL (9-23)
[2024-07-03 06:43] LABS: PHOSPHORUS 7.3 mg/dL (2.5-4.9)
[2024-07-03 06:53] LABS: CREATININE 8.6 mg/dL (0.6-1.0)
[2024-07-04] VITALS: BP 137/46; PULSE 16; RESP 16; TEMP 36.9474; O2SAT 94
[2024-07-04 04:00] VITALS: BP 124/63; PULSE 68; RESP 13; TEMP 36.61404; O2SAT 97
[2024-07-04 08:00] VITALS: BP 112/57; PULSE 66; RESP 18; TEMP 36.6696; TEMP 36.66960; O2SAT 96
[2024-07-04 09:46] VITALS: BP 124/63; PULSE 68; TEMP 97.9; O2SAT 100
== END 2024-07-04 10:04 | disposition home or self-care (01) | DRG 291 ==
LOC: ER 03:49 → EDBEDREQ 04:28 → EDBEDREQTM 05:22 → EDBEDREQSVC 05:22 → EDBEDREQ 05:22 → 3WST 08:17
PROVIDERS: ADMIT Internal Medicine; ATTEND Internal Medicine
PROC: 5A1D70Z Performance of Urinary Filtration, Intermittent, Less than 6 Hours Per Day (ICD-10-PCS; principal; 2024-06-29)
PROC: 5A1D70Z Performance of Urinary Filtration, Intermittent, Less than 6 Hours Per Day (ICD-10-PCS; 2024-06-30)
PROC: 5A1D70Z Performance of Urinary Filtration, Intermittent, Less than 6 Hours Per Day (ICD-10-PCS; 2024-07-02)
PROC: 5A1D70Z Performance of Urinary Filtration, Intermittent, Less than 6 Hours Per Day (ICD-10-PCS; 2024-07-03)
DX: I13.2 Hypertensive heart and chronic kidney disease with heart failure and with stage 5 chronic kidney disease, or end stage renal disease (principal); I50.23 Acute on chronic systolic (congestive) heart failure; N18.6 End stage renal disease; N25.81 Secondary hyperparathyroidism of renal origin; R78.81 Bacteremia; I42.9 Cardiomyopathy, unspecified; D63.1 Anemia in chronic kidney disease; E11.22 Type 2 diabetes mellitus with diabetic chronic kidney disease; E11.51 Type 2 diabetes mellitus with diabetic peripheral angiopathy without gangrene; E78.5 Hyperlipidemia, unspecified; E87.5 Hyperkalemia; F32.A Depression, unspecified; G89.29 Other chronic pain; J45.909 Unspecified asthma, uncomplicated; M51.369 Other intervertebral disc degeneration, lumbar region without mention of lumbar back pain or lower extremity pain; M79.18 Myalgia, other site; Z99.2 Dependence on renal dialysis; Z82.49 Family history of ischemic heart disease and other diseases of the circulatory system; Z86.73 Personal history of transient ischemic attack (TIA), and cerebral infarction without residual deficits; Z88.6 Allergy status to analgesic agent
CPT/HCPCS: 36415; 71045; 71275; 72148; 72192; 74174; 80048; 80076; 80202; 81003; 83605; 83735; 84100; 84145; 85025; 86705; 86709; 87077; 87340; 90935; 97161; 99291; J0692; J0885; J2270; J2405; J3370; J3490; Q9967

== ENCOUNTER 2024-08-20 05:42 | Emergency (ER) | payer MEDICARE, MEDICAID ==
[2024-08-20] VITALS (13 sets, daily range): BP systolic 163–186; BP diastolic 69–84; PULSE 74–88; RESP 11–25; TEMP 36.78072; O2SAT 95–100
[~2024-08-20] VITALS: Ht 165.1 cm
[~2024-08-20 05:42] MED LIST changes: +AMLO5TAB88 MT; -CLOP-31 PO; -COR3 MT; -NIFE60TA64 PO
[2024-08-20 06:39] LABS: POTASSIUM 5.3 mEq/L (3.5-5.1)
[2024-08-20 06:40] LABS: BASOPHILS % 0.9 % (0.0-2.0); CALCIUM 9.5 mg/dL (8.7-10.4); EOSINOPHILS % 2.5 % (0.0-5.0); HEMATOCRIT. 25.4 % (36.0-48.0); HEMOGLOBIN. 8.2 g/dL (12.0-16.0); LYMPHOCYTES % 17.9 % (20.0-50.0); MEAN CORPUSCULAR HGB CONC 32.2 g/dL (31.0-37.0); MEAN CORPUSCULAR VOLUME 93.3 fL (81.0-99.0); MEAN PLATELET VOLUME 9.1 fl (7.4-10.4); MONOCYTES % 7.2 % (2.0-8.0); NEUTROPHILS % 71.5 % (40.0-76.0); PLATELET 216 x1000/uL (130-400); RED BLOOD CELL COUNT 2.72 mill/uL (4.2-5.4); RED CELL DISTRIBUTION WIDTH 17.9 % (11.6-14.6); WHITE BLOOD COUNT 7.6 x1000/uL (4.5-11.0)
[2024-08-20 06:55] LABS: CREATININE 8.8 mg/dL (0.6-1.0)
[2024-08-20 07:35] LABS: PROTHROMBIN TIME 11.6 sec (9.6-11.0)
[2024-08-20] MEDS: CEFAZOLIN 1000MG PREMIX 50 ML IV ONE (09:35)
[2024-08-20] MEDS ORDERED: LIDOCAINE HCL 1% 10 MG/ML 10ML VIAL ONE (09:35)
[2024-08-20] MEDS ORDERED: LIDOCAINE HCL/EPINEPHRINE 1%-EPI 1:100,000 20ML VIAL ONE (09:35)
[2024-08-20] MEDS ORDERED: FENTANYL CITRATE/PF 50MCG/ML 2ML VIAL ONE (09:38)
[2024-08-20] MEDS: FENTANYL CITRATE/PF 50MCG/ML 2ML VIAL IV ONE (09:40)
== END 2024-08-20 08:03 | disposition home or self-care (01) ==
LOC: ER 05:56
DX: T83.098A Other mechanical complication of other urinary catheter, initial encounter (principal); N18.6 End stage renal disease; I13.2 Hypertensive heart and chronic kidney disease with heart failure and with stage 5 chronic kidney disease, or end stage renal disease; I50.9 Heart failure, unspecified; F19.90 Other psychoactive substance use, unspecified, uncomplicated; Z98.890 Other specified postprocedural states; Z79.899 Other long term (current) drug therapy; Z88.6 Allergy status to analgesic agent; Z99.2 Dependence on renal dialysis; X58.XXXA Exposure to other specified factors, initial encounter; Y93.89 Activity, other specified; Y92.89 Other specified places as the place of occurrence of the external cause; Y99.8 Other external cause status
CPT/HCPCS: 36558; 80048; 85025; 85610; 36415; 77001; 76937; 99285; 96365; 96375; J3010; J0690; J1642; J3490 ×2; C1750; C1725; C1769; 99152; 99153; G0500

== ENCOUNTER 2025-02-15 12:49 | Inpatient (IN) | payer MEDICARE, MEDICAID ==
[~2025-02-15] VITALS: Ht 157.5 cm; Wt 78.0 kg
[2025-02-15] MEDS: ONDANSETRON HCL 4MG/2ML INJ IV STA (13:38)
[2025-02-15] MEDS: MORPHINE SULFATE 4 MG/ML INJ (FOR IV/IM USE) IV STA (13:39)
[2025-02-15] MEDS: FAMOTIDINE 20MG/2ML VIAL IV ONE (13:39)
[2025-02-15] MEDS: MAGNESIUM/ALUMINUM HYDROXIDE/SIMETHICONE 30ML UDC PO ONE (13:39)
[2025-02-15 14:08] LABS: BASOPHILS % 1.1 % (0.0-2.0); EOSINOPHILS % 2.5 % (0.0-5.0); HEMATOCRIT. 27.4 % (36.0-48.0); HEMOGLOBIN. 8.9 g/dL (12.0-16.0); LYMPHOCYTES % 12.7 % (20.0-50.0); MEAN CORPUSCULAR HEMOGLOBIN 28.9 pg (28.0-32.0); MEAN CORPUSCULAR HGB CONC 32.3 g/dL (31.0-37.0); MEAN CORPUSCULAR VOLUME 89.4 fL (81.0-99.0); MEAN PLATELET VOLUME 9.7 fl (7.4-10.4); MONOCYTES % 4.9 % (2.0-8.0); NEUTROPHILS % 78.8 % (40.0-76.0); PLATELET 209 x1000/uL (130-400); RED BLOOD CELL COUNT 3.07 mill/uL (4.2-5.4); RED CELL DISTRIBUTION WIDTH 20.7 % (11.6-14.6); WHITE BLOOD COUNT 7.4 x1000/uL (4.5-11.0)
[2025-02-15 14:20] LABS: INR 1.1; PROTHROMBIN TIME 12.2 sec (9.6-11.0)
[2025-02-15 15:38] LABS: CHLORIDE 96 mEq/L (98-107); POTASSIUM 5.9 mEq/L (3.5-5.1); SODIUM 139 mEq/L (136-145)
[2025-02-15 15:39] LABS: CALCIUM 8.9 mg/dL (8.7-10.4); CARBON DIOXIDE 30 mEq/L (21-32)
[2025-02-15 15:44] LABS: GLUCOSE 111 mg/dL (70-105); UREA NITROGEN BLOOD 70 mg/dL (9-23)
[2025-02-15 15:46] LABS: ALANINE AMINOTRANSFERASE 20 IU/L (10-49); ALBUMIN 4.2 g/dL (3.2-4.8); ASPARTATE AMINOTRANSFERASE 17 IU/L (<34); BILIRUBIN DIRECT 0.1 mg/dL (<=3.0); PHOSPHORUS 7.7 mg/dL (2.5-4.9)
[2025-02-15 15:47] LABS: BILIRUBIN TOTAL 0.2 mg/dL (0.1-1.0)
[2025-02-15 15:50] LABS: CREATININE 9.7 mg/dL (0.6-1.0)
[2025-02-15 15:51] LABS: TROPONIN I HIGH SENSITIVITY 447 ng/L (3.0-34)
[2025-02-15 19:55] VITALS: BP 184/73; PULSE 60; RESP 18; TEMP 36.6
[2025-02-15 20:00] VITALS: BP 184/73; PULSE 60; RESP 18; TEMP 36.6; O2SAT 98
[2025-02-15] MEDS ORDERED: ONDANSETRON HCL 4MG/2ML INJ IV PRN (20:30)
[2025-02-15] MEDS ORDERED: ZOLPIDEM TARTRATE 5MG TABLET PO PRN (20:30)
[2025-02-15] MEDS ORDERED: IPRATROPIUM/ALBUTEROL 0.5-3(2.5)MG/3ML NEB NEB PRN (20:30)
[2025-02-15] MEDS ORDERED: HYDRALAZINE 20MG/ML VIAL IV PRN (20:30)
[2025-02-15] MEDS ORDERED: HYDROCODONE/ACETAMINOPHEN 5/325MG TABLET PO PRN (20:30)
[2025-02-15] MEDS ORDERED: NALOXONE HCL 0.4MG/ML VIAL IV PRN (21:15)
[2025-02-15] MEDS: SODIUM POLYSTYRENE SULFONATE 15 G/60 ML BOT PO NR (23:03)
[2025-02-16] VITALS (10 sets, daily range): BP systolic 140–194; BP diastolic 62–99; PULSE 53–78; RESP 12–19; TEMP 36.4–36.9; O2SAT 93–100
[2025-02-16 00:37] LABS: CALCIUM 9.4 mg/dL (8.7-10.4)
[2025-02-16 00:59] LABS: CREATININE 10.5 mg/dL (0.6-1.0); POTASSIUM 7.2 mEq/L (3.5-5.1)
[2025-02-16 07:04] LABS: EOSINOPHILS % 3.2 % (0.0-5.0); HEMATOCRIT. 27.5 % (36.0-48.0); HEMOGLOBIN. 8.9 g/dL (12.0-16.0); LYMPHOCYTES % 15.6 % (20.0-50.0); MEAN CORPUSCULAR HEMOGLOBIN 29.1 pg (28.0-32.0); MEAN CORPUSCULAR HGB CONC 32.3 g/dL (31.0-37.0); MEAN CORPUSCULAR VOLUME 90.2 fL (81.0-99.0); MEAN PLATELET VOLUME 9.4 fl (7.4-10.4); MONOCYTES % 5.2 % (2.0-8.0); PLATELET 200 x1000/uL (130-400); RED BLOOD CELL COUNT 3.05 mill/uL (4.2-5.4); RED CELL DISTRIBUTION WIDTH 20.5 % (11.6-14.6); WHITE BLOOD COUNT 7.9 x1000/uL (4.5-11.0)
[2025-02-16 07:14] LABS: POTASSIUM 5.9 mEq/L (3.5-5.1)
[2025-02-16 07:15] LABS: CALCIUM 9.7 mg/dL (8.7-10.4)
[2025-02-16 07:26] LABS: CREATININE 10.8 mg/dL (0.6-1.0)
[2025-02-16] MEDS: ASPIRIN 81MG TABLET PO SCH (08:00)
[2025-02-16 08:54] LABS: HEPATITIS B SURFACE ANTIGEN NEGATIVE (Negative)
[2025-02-16 09:14] LABS: HEPATITIS A AB IGM NEGATIVE (Negative)
[2025-02-16] MEDS: PANTOPRAZOLE SODIUM 40 MG/VIAL IV SCH (09:14)
[2025-02-16 09:15] LABS: HEPATITIS B CORE AB IGM NEGATIVE (Negative)
[2025-02-16] MEDS: ENOXAPARIN 30MG/0.3ML SYR SUBCUT SCH (09:15)
[2025-02-16 09:16] LABS: HEPATITIS C AB NON REACTIVE (Neg) (Negative)
[2025-02-16] MEDS: CLONIDINE 0.1MG TABLET PO PRN (09:16)
[2025-02-16] MEDS: APIXABAN 5 MG TABLET PO SCH (13:44)
[2025-02-16] MEDS: HYDRALAZINE HCL 100MG TABLET PO SCH (13:47)
[2025-02-16] MEDS: ACETAMINOPHEN 325MG TABLET PO PRN (13:48)
[2025-02-17] VITALS (12 sets, daily range): BP systolic 129–177; BP diastolic 49–90; PULSE 56–90; RESP 11–24; TEMP 36.4–36.89184; O2SAT 91–100
[2025-02-17 07:10] LABS: BASOPHILS % 0.8 % (0.0-2.0); EOSINOPHILS % 2.8 % (0.0-5.0); HEMATOCRIT. 26.8 % (36.0-48.0); HEMOGLOBIN. 8.7 g/dL (12.0-16.0); LYMPHOCYTES % 14.8 % (20.0-50.0); MEAN CORPUSCULAR HEMOGLOBIN 29.2 pg (28.0-32.0); MEAN CORPUSCULAR HGB CONC 32.5 g/dL (31.0-37.0); MEAN CORPUSCULAR VOLUME 89.8 fL (81.0-99.0); MEAN PLATELET VOLUME 9.1 fl (7.4-10.4); MONOCYTES % 5.9 % (2.0-8.0); NEUTROPHILS % 75.7 % (40.0-76.0); PLATELET 183 x1000/uL (130-400); RED BLOOD CELL COUNT 2.99 mill/uL (4.2-5.4); RED CELL DISTRIBUTION WIDTH 20.5 % (11.6-14.6); WHITE BLOOD COUNT 6.5 x1000/uL (4.5-11.0)
[2025-02-17 07:18] LABS: POTASSIUM 5.1 mEq/L (3.5-5.1)
[2025-02-17 07:19] LABS: CALCIUM 9.1 mg/dL (8.7-10.4)
[2025-02-17 07:57] LABS: CREATININE 9.2 mg/dL (0.6-1.0)
[2025-02-17] MEDS: ISOSORBIDE MONONITRATE 30MG TABLET SR 24HR PO SCH (09:00)
[2025-03-03] MEDS ORDERED: PROT40 MT (12:00)
[2025-03-24] MEDS ORDERED: LEVO250T74 MT (13:21)
== END 2025-02-17 16:25 | disposition home or self-care (01) | DRG 205 ==
LOC: ER 12:49 → EDBEDREQ 16:05 → 3WST 19:44
PROVIDERS: ADMIT Internal Medicine; ATTEND Internal Medicine
PROC: 5A1D70Z Performance of Urinary Filtration, Intermittent, Less than 6 Hours Per Day (ICD-10-PCS; 2025-02-16)
PROC: 5A1D70Z Performance of Urinary Filtration, Intermittent, Less than 6 Hours Per Day (ICD-10-PCS; principal; 2025-02-17)
DX: M94.0 Chondrocostal junction syndrome [Tietze] (principal); I21.4 Non-ST elevation (NSTEMI) myocardial infarction; I50.23 Acute on chronic systolic (congestive) heart failure; N18.6 End stage renal disease; I13.2 Hypertensive heart and chronic kidney disease with heart failure and with stage 5 chronic kidney disease, or end stage renal disease; N25.81 Secondary hyperparathyroidism of renal origin; E87.5 Hyperkalemia; F32.A Depression, unspecified; D63.1 Anemia in chronic kidney disease; E78.5 Hyperlipidemia, unspecified; E11.22 Type 2 diabetes mellitus with diabetic chronic kidney disease; E11.51 Type 2 diabetes mellitus with diabetic peripheral angiopathy without gangrene; E66.9 Obesity, unspecified; I25.10 Atherosclerotic heart disease of native coronary artery without angina pectoris; G89.29 Other chronic pain; Z79.01 Long term (current) use of anticoagulants; Z79.02 Long term (current) use of antithrombotics/antiplatelets; Z79.899 Other long term (current) drug therapy; Z82.49 Family history of ischemic heart disease and other diseases of the circulatory system; Z86.711 Personal history of pulmonary embolism; Z86.73 Personal history of transient ischemic attack (TIA), and cerebral infarction without residual deficits; Z88.6 Allergy status to analgesic agent; Z99.2 Dependence on renal dialysis; Z68.31 Body mass index [BMI] 31.0-31.9, adult; Z88.8 Allergy status to other drugs, medicaments and biological substances; I25.2 Old myocardial infarction
CPT/HCPCS: 36415; 71045; 74176; 80048; 80076; 83735; 83880; 84100; 84484; 85025; 86705; 86709; 87340; 90935; 93005; 93970; 99291; A4606; J1308; J1650; J2270; J2405; J2470

== ENCOUNTER 2025-03-29 13:31 | Inpatient (IN) | payer MEDICARE, MEDICAID ==
[~2025-03-29] VITALS: Ht 160 cm; Wt 75.8 kg
[~2025-03-29 13:31] MED LIST changes: -ALBU05 NEB; -CLOP75TA33 PO; -HYDR-4001 MT; +LEVO250T74 MT; -LISI20TA31 PO; +PROT40 MT
[2025-03-29 13:33] VITALS: O2SAT 95
[2025-03-29] MEDS: MORPHINE SULFATE 4 MG/ML INJ (FOR IV/IM USE) IV ONE (14:06)
[2025-03-29] MEDS: ONDANSETRON HCL 4MG/2ML INJ IV ONE (14:06)
[2025-03-29 14:26] LABS: BASOPHILS % 0.6 % (0.0-2.0); EOSINOPHILS % 1.9 % (0.0-5.0); HEMATOCRIT. 25.1 % (36.0-48.0); HEMOGLOBIN. 8.1 g/dL (12.0-16.0); LYMPHOCYTES % 13.5 % (20.0-50.0); MEAN PLATELET VOLUME 9.2 fl (7.4-10.4); MONOCYTES % 6.3 % (2.0-8.0); NEUTROPHILS % 77.7 % (40.0-76.0); PLATELET 182 x1000/uL (130-400); RED BLOOD CELL COUNT 2.80 mill/uL (4.2-5.4); RED CELL DISTRIBUTION WIDTH 21.5 % (11.6-14.6)
[2025-03-29 14:37] LABS: UREA NITROGEN BLOOD 80 mg/dL (9-23)
[2025-03-29 14:42] LABS: CREATININE 9.8 mg/dL (0.6-1.0); TROPONIN I HIGH SENSITIVITY 2594 ng/L (3.0-34)
[2025-03-29 16:44] LABS: TROPONIN I HIGH SENSITIVITY 2496 ng/L (3.0-34)
[2025-03-29] MEDS ORDERED: HEPARIN 25,000 UNITS PREMIX 250 ML IV SCH ×2 (17:00→18:30)
[2025-03-29 18:09] LABS: INR 1.2
[2025-03-29] MEDS ORDERED: HEPARIN 5000 UNITS/ML VIAL IV NR (18:15)
[2025-03-29] MEDS: HEPARIN 5000 UNITS/ML VIAL IV NR (18:27)
[2025-03-29] MEDS: HEPARIN 25,000 UNITS PREMIX 250 ML IV SCH (18:34)
[2025-03-29 20:00] VITALS: BP 179/85; PULSE 59; RESP 18; TEMP 36.8; O2SAT 100
[2025-03-29] MEDS: PANTOPRAZOLE SODIUM 40 MG/VIAL IV SCH (21:07)
[2025-03-29] MEDS: HYDRALAZINE HCL 50MG TABLET PO SCH (21:08)
[2025-03-29] MEDS: AMLODIPINE 5MG TABLET PO SCH (21:08)
[2025-03-29] MEDS ORDERED: DEXTROSE 50% WATER 50ML SYRINGE IV PRN (21:45)
[2025-03-29 22:00] VITALS: BP 140/66; PULSE 61; RESP 19; O2SAT 98
[2025-03-29] MEDS ORDERED: NALOXONE HCL 0.4MG/ML VIAL IV PRN (22:00)
[2025-03-30] VITALS (20 sets, daily range): BP systolic 116–176; BP diastolic 59–86; PULSE 59–67; RESP 13–19; TEMP 36.4–37.1; O2SAT 94–100
[2025-03-30] MEDS ORDERED: HEPARIN BOLUS PRN aPTT <30 IV
[2025-03-30] MEDS ORDERED: HEPARIN BOLUS PRN aPTT 30-44 IV
[2025-03-30] MEDS: ATORVASTATIN CALCIUM 20MG TABLET PO SCH (00:15)
[2025-03-30 01:50] LABS: TROPONIN I HIGH SENSITIVITY 3332 ng/L (3.0-34)
[2025-03-30] MEDS: BLOOD SUGAR DIAGNOSTIC STRIP TEST SCH (07:30)
[2025-03-30 08:00] LABS: UREA NITROGEN BLOOD 87.0 mg/dL (9-23)
[2025-03-30] MEDS: INSULIN LISPRO 100 UNITS/ML SUBCUT SCH (08:00)
[2025-03-30 08:09] LABS: CREATININE 11.3 mg/dL (0.6-1.0)
[2025-03-30 08:16] LABS: BASOPHILS % 0.9 % (0.0-2.0); EOSINOPHILS % 3.8 % (0.0-5.0); HEMATOCRIT. 24.6 % (36.0-48.0); HEMOGLOBIN. 8.0 g/dL (12.0-16.0); LYMPHOCYTES % 15.0 % (20.0-50.0); MEAN PLATELET VOLUME 9.5 fl (7.4-10.4); MONOCYTES % 7.2 % (2.0-8.0); NEUTROPHILS % 73.1 % (40.0-76.0); PLATELET 180 x1000/uL (130-400); RED BLOOD CELL COUNT 2.73 mill/uL (4.2-5.4); RED CELL DISTRIBUTION WIDTH 20.6 % (11.6-14.6)
[2025-03-30 09:30] LABS: HEPATITIS A AB IGM NEGATIVE (Negative); HEPATITIS B CORE AB IGM NEGATIVE (Negative)
[2025-03-30 09:31] LABS: HEPATITIS C AB NON REACTIVE (Neg) (Negative)
[2025-03-30] MEDS: ENOXAPARIN 80MG/0.8ML SYR SUBCUT SCH (13:59)
[2025-03-30] MEDS: EPOETIN ALFA-EPBX 4,000 UNITS/ML VIAL SUBCUT SCH (22:14)
[2025-03-31] VITALS (12 sets, daily range): BP systolic 100–196; BP diastolic 50–127; PULSE 60–77; RESP 12–19; TEMP 36.4–36.9; O2SAT 91–100
[2025-03-31 05:09] LABS: BASOPHILS % 0.8 % (0.0-2.0); EOSINOPHILS % 2.3 % (0.0-5.0); HEMATOCRIT. 25.2 % (36.0-48.0); HEMOGLOBIN. 8.2 g/dL (12.0-16.0); LYMPHOCYTES % 12.2 % (20.0-50.0); MEAN PLATELET VOLUME 9.8 fl (7.4-10.4); MONOCYTES % 7.4 % (2.0-8.0); NEUTROPHILS % 77.3 % (40.0-76.0); PLATELET 215 x1000/uL (130-400); RED BLOOD CELL COUNT 2.79 mill/uL (4.2-5.4); RED CELL DISTRIBUTION WIDTH 20.5 % (11.6-14.6)
[2025-03-31 05:23] LABS: TRIGLYCERIDE 102 mg/dL (0-150); UREA NITROGEN BLOOD 69 mg/dL (9-23)
[2025-03-31 05:24] LABS: ASPARTATE AMINOTRANSFERASE 30 IU/L (<34); LDL CHOLESTEROL 72 mg/dL (5-100)
[2025-03-31 05:26] LABS: BILIRUBIN TOTAL 0.2 mg/dL (0.1-1.0); PROTEIN TOTAL 7.7 g/dL (6.0-8.3)
[2025-03-31 05:34] LABS: CREATININE 8.7 mg/dL (0.6-1.0)
[2025-03-31] MEDS ORDERED: SODIUM ZIRCONIUM CYCLOSILICATE 10GM/PACKET PO SCH (14:45)
[2025-03-31] MEDS: ONDANSETRON HCL 4MG/2ML INJ IV PRN (17:23)
[2025-03-31] MEDS: SODIUM POLYSTYRENE SULFONATE 15 G/60 ML BOT PO SCH (17:24)
[2025-03-31] MEDS: HYDRALAZINE HCL 25MG TABLET PO SCH (21:58)
[2025-04-01] VITALS (21 sets, daily range): BP systolic 108–176; BP diastolic 55–106; PULSE 64–90; RESP 13–21; TEMP 36.1–38.00304; O2SAT 91–100
[2025-04-01] MEDS: MORPHINE SULFATE 2 MG/ML INJ (NOT FOR IM USE) IV PRN (02:28)
[2025-04-01] MEDS: CLONIDINE HCL 0.2MG/24HR PATCH TD SCH (11:00)
[2025-04-01 12:40] LABS: PLATELET 201 x1000/uL (130-400); RED BLOOD CELL COUNT 2.79 mill/uL (4.2-5.4); RED CELL DISTRIBUTION WIDTH 20.5 % (11.6-14.6)
[2025-04-01] MEDS: HYDRALAZINE HCL 100MG TABLET PO SCH (14:42)
[2025-04-01 16:47] LABS: FOLIC ACID (FOLATE) SERUM 6.00 ng/mL (>5.38)
[2025-04-01 16:48] LABS: VITAMIN B12 SERUM 743 pg/mL (211-911)
[2025-04-02] VITALS (15 sets, daily range): BP systolic 134–164; BP diastolic 44–115; PULSE 62–82; RESP 15–20; TEMP 36.6–37.1; O2SAT 85–99
[2025-04-02 06:19] LABS: PLATELET 197 x1000/uL (130-400); RED BLOOD CELL COUNT 2.77 mill/uL (4.2-5.4); RED CELL DISTRIBUTION WIDTH 20.9 % (11.6-14.6)
[2025-04-02 06:28] LABS: UREA NITROGEN BLOOD 54.0 mg/dL (9-23)
[2025-04-02 06:35] LABS: CREATININE 7.9 mg/dL (0.6-1.0)
[2025-04-03] VITALS (12 sets, daily range): BP systolic 121–171; BP diastolic 54–91; PULSE 65–77; RESP 16–20; TEMP 36.8–37; O2SAT 94–100
[2025-04-03 09:08] LABS: BASOPHILS % 1.1 % (0.0-2.0); EOSINOPHILS % 2.5 % (0.0-5.0); HEMATOCRIT. 24.8 % (36.0-48.0); HEMOGLOBIN. 8.1 g/dL (12.0-16.0); LYMPHOCYTES % 17.5 % (20.0-50.0); MEAN PLATELET VOLUME 9.3 fl (7.4-10.4); MONOCYTES % 12.2 % (2.0-8.0); NEUTROPHILS % 66.7 % (40.0-76.0); PLATELET 223 x1000/uL (130-400); RED BLOOD CELL COUNT 2.76 mill/uL (4.2-5.4); RED CELL DISTRIBUTION WIDTH 19.9 % (11.6-14.6)
[2025-04-03 09:25] LABS: UREA NITROGEN BLOOD 39.0 mg/dL (9-23)
[2025-04-03 09:27] LABS: CREATININE 6.8 mg/dL (0.6-1.0)
[2025-04-05] MEDS ORDERED: CLONIDINE HCL 0.2MG/24HR PATCH TD SCH (09:00)
[2025-04-06 07:45] LABS: TROPONIN I HIGH SENSITIVITY 2271 ng/L (3.0-34)
== END 2025-04-03 17:15 | disposition left against medical advice (07) | DRG 280 ==
LOC: ER 13:31 → 5EST 16:56 → ENRESERV 17:43
PROVIDERS: ADMIT Internal Medicine; ATTEND Internal Medicine
PROC: 5A1D70Z Performance of Urinary Filtration, Intermittent, Less than 6 Hours Per Day (ICD-10-PCS; 2025-03-30)
PROC: 5A1D70Z Performance of Urinary Filtration, Intermittent, Less than 6 Hours Per Day (ICD-10-PCS; 2025-04-01)
PROC: 5A1D70Z Performance of Urinary Filtration, Intermittent, Less than 6 Hours Per Day (ICD-10-PCS; principal; 2025-04-02)
PROC: 5A1D70Z Performance of Urinary Filtration, Intermittent, Less than 6 Hours Per Day (ICD-10-PCS; 2025-04-03)
DX: I21.4 Non-ST elevation (NSTEMI) myocardial infarction (principal); J96.20 Acute and chronic respiratory failure, unspecified whether with hypoxia or hypercapnia; N18.6 End stage renal disease; I13.2 Hypertensive heart and chronic kidney disease with heart failure and with stage 5 chronic kidney disease, or end stage renal disease; N25.81 Secondary hyperparathyroidism of renal origin; I50.9 Heart failure, unspecified; K74.60 Unspecified cirrhosis of liver; E78.5 Hyperlipidemia, unspecified; F32.A Depression, unspecified; D63.1 Anemia in chronic kidney disease; E11.22 Type 2 diabetes mellitus with diabetic chronic kidney disease; D63.8 Anemia in other chronic diseases classified elsewhere; Z53.21 Procedure and treatment not carried out due to patient leaving prior to being seen by health care provider; G89.29 Other chronic pain; E11.51 Type 2 diabetes mellitus with diabetic peripheral angiopathy without gangrene; E61.1 Iron deficiency; I34.0 Nonrheumatic mitral (valve) insufficiency; K59.00 Constipation, unspecified; Z88.6 Allergy status to analgesic agent; Z86.73 Personal history of transient ischemic attack (TIA), and cerebral infarction without residual deficits; Z99.2 Dependence on renal dialysis; Z86.711 Personal history of pulmonary embolism
CPT/HCPCS: 36415; 71045; 80048; 80053; 80061; 82270; 82607; 82728; 82746; 82962; 83036; 83735; 84443; 84484; 85025; 85027; 85044; 86705; 86709; 87340; 90935; 93005; 93306; 96374; 96375; 99291; A4606; J0885; J1644; J1650; J1815; J2270; J2405; J2470

== ENCOUNTER 2025-04-13 01:02 | Inpatient (IN) | payer MEDICARE, MEDICAID ==
[~2025-04-13] VITALS: Ht 157.5 cm; Wt 61.7 kg
[2025-04-13] VITALS (14 sets, daily range): BP systolic 143–201; BP diastolic 49–96; PULSE 46–55; RESP 15–20; TEMP 36.1–36.7; O2SAT 92–100
[2025-04-13] MEDS: LABETALOL 5MG/ML 4ML INJ IV ONE (02:00)
[2025-04-13] MEDS: ONDANSETRON HCL 4MG/2ML INJ IV ONE (02:00)
[2025-04-13] MEDS ORDERED: MORPHINE SULFATE 4 MG/ML INJ (FOR IV/IM USE) IV ONE (02:00)
[2025-04-13 02:57] LABS: BASOPHILS % 1.2 % (0.0-2.0); EOSINOPHILS % 2.5 % (0.0-5.0); HEMATOCRIT. 25.8 % (36.0-48.0); HEMOGLOBIN. 8.2 g/dL (12.0-16.0); LYMPHOCYTES % 16.5 % (20.0-50.0); MEAN PLATELET VOLUME 9.1 fl (7.4-10.4); MONOCYTES % 6.9 % (2.0-8.0); NEUTROPHILS % 72.9 % (40.0-76.0); PLATELET 197 x1000/uL (130-400); RED BLOOD CELL COUNT 2.86 mill/uL (4.2-5.4); RED CELL DISTRIBUTION WIDTH 21.3 % (11.6-14.6)
[2025-04-13 03:17] LABS: UREA NITROGEN BLOOD 30 mg/dL (9-23)
[2025-04-13 03:37] LABS: TROPONIN I HIGH SENSITIVITY 88 ng/L (3.0-34)
[2025-04-13 03:38] LABS: CREATININE 6.3 mg/dL (0.6-1.0)
[2025-04-13] MEDS: ONDANSETRON HCL 4MG/2ML INJ IV NR (03:38)
[2025-04-13] MEDS: MORPHINE SULFATE 4 MG/ML INJ (FOR IV/IM USE) IV NR (03:38)
[2025-04-13] MEDS: LABETALOL 5MG/ML 4ML INJ IV NR (03:38)
[2025-04-13 05:37] LABS: TROPONIN I HIGH SENSITIVITY 79 ng/L (3.0-34)
[2025-04-13] MEDS ORDERED: ONDANSETRON HCL 4MG/2ML INJ IV PRN (10:00)
[2025-04-13] MEDS ORDERED: NALOXONE HCL 0.4MG/ML VIAL IV PRN (10:00)
[2025-04-13] MEDS ORDERED: IPRATROPIUM/ALBUTEROL 0.5-3(2.5)MG/3ML NEB HHN PRN (10:00)
[2025-04-13] MEDS ORDERED: HYDROCODONE/ACETAMINOPHEN 5/325MG TABLET PO PRN (10:00)
[2025-04-13] MEDS: ENOXAPARIN 40MG/0.4ML SYR SUBCUT SCH (11:21)
[2025-04-13 12:26] LABS: HEPATITIS A AB IGM NEGATIVE (Negative)
[2025-04-13 12:27] LABS: HEPATITIS B CORE AB IGM NEGATIVE (Negative); HEPATITIS C AB NON REACTIVE (Neg) (Negative)
[2025-04-13] MEDS: HYDRALAZINE 20MG/ML VIAL IV PRN (17:01)
[2025-04-13] MEDS: EPOETIN ALFA-EPBX 4,000 UNITS/ML VIAL SUBCUT SCH (20:27)
[2025-04-14] VITALS: BP 153/70; PULSE 52; RESP 17; TEMP 36.7; O2SAT 98
[2025-04-14 04:00] VITALS: BP 120/50; PULSE 54; RESP 18; TEMP 36.8; O2SAT 92
[2025-04-14 07:12] LABS: BASOPHILS % 1.0 % (0.0-2.0); EOSINOPHILS % 2.6 % (0.0-5.0); HEMATOCRIT. 26.0 % (36.0-48.0); HEMOGLOBIN. 8.4 g/dL (12.0-16.0); LYMPHOCYTES % 13.0 % (20.0-50.0); MEAN PLATELET VOLUME 9.6 fl (7.4-10.4); MONOCYTES % 8.0 % (2.0-8.0); NEUTROPHILS % 75.4 % (40.0-76.0); PLATELET 181 x1000/uL (130-400); RED BLOOD CELL COUNT 2.83 mill/uL (4.2-5.4); RED CELL DISTRIBUTION WIDTH 20.4 % (11.6-14.6)
[2025-04-14 07:15] LABS: TRIGLYCERIDE 97.0 mg/dL (0-150); UREA NITROGEN BLOOD 27.0 mg/dL (9-23)
[2025-04-14 07:16] LABS: LDL CHOLESTEROL 80.0 mg/dL (5-100); T4 FREE 1.52 ng/dL (0.89-1.76)
[2025-04-14 07:57] LABS: CREATININE 6.5 mg/dL (0.6-1.0)
[2025-04-14 08:00] VITALS: BP 168/59; PULSE 52; RESP 18; TEMP 36.2; O2SAT 99
[2025-04-14 12:00] VITALS: BP 160/73; PULSE 54; RESP 18; TEMP 36.5; O2SAT 98
[2025-04-14] MEDS: AMLODIPINE 5MG TABLET PO SCH (12:19)
[2025-04-14 16:00] VITALS: BP 152/73; PULSE 55; RESP 18; TEMP 36.6; O2SAT 98
[2025-04-14 20:00] VITALS: BP 165/71; PULSE 56; RESP 14; TEMP 36.2; O2SAT 92
[2025-04-14] MEDS: HYDRALAZINE HCL 50MG TABLET PO SCH (21:49)
[2025-04-15] VITALS (9 sets, daily range): BP systolic 149–181; BP diastolic 57–94; PULSE 49–60; RESP 18–20; TEMP 35.7–36.7; O2SAT 93–99
[2025-04-16] VITALS (10 sets, daily range): BP systolic 110–184; BP diastolic 44–87; PULSE 52–64; RESP 18–26; TEMP 36.2–36.9; O2SAT 93–99
[2025-04-16] MEDS: HYDRALAZINE HCL 50MG TABLET PO SCH (12:28)
== END 2025-04-16 19:39 | disposition home or self-care (01) | DRG 291 ==
LOC: ER 01:02 → 8WST 04:38 → EDBEDREQTM 04:59 → EDBEDREQ 04:59 → ENRESERV 07:01
PROVIDERS: ADMIT Internal Medicine; ATTEND Internal Medicine
PROC: 5A1D70Z Performance of Urinary Filtration, Intermittent, Less than 6 Hours Per Day (ICD-10-PCS; principal; 2025-04-13)
PROC: 5A1D70Z Performance of Urinary Filtration, Intermittent, Less than 6 Hours Per Day (ICD-10-PCS; 2025-04-15)
PROC: 5A1D70Z Performance of Urinary Filtration, Intermittent, Less than 6 Hours Per Day (ICD-10-PCS; 2025-04-16)
DX: I13.2 Hypertensive heart and chronic kidney disease with heart failure and with stage 5 chronic kidney disease, or end stage renal disease (principal); I50.23 Acute on chronic systolic (congestive) heart failure; N18.6 End stage renal disease; N25.81 Secondary hyperparathyroidism of renal origin; E87.70 Fluid overload, unspecified; Z99.2 Dependence on renal dialysis; D63.1 Anemia in chronic kidney disease; G89.29 Other chronic pain; E78.5 Hyperlipidemia, unspecified; M51.9 Unspecified thoracic, thoracolumbar and lumbosacral intervertebral disc disorder; F32.A Depression, unspecified; E11.22 Type 2 diabetes mellitus with diabetic chronic kidney disease; E11.51 Type 2 diabetes mellitus with diabetic peripheral angiopathy without gangrene; I25.2 Old myocardial infarction; Z86.73 Personal history of transient ischemic attack (TIA), and cerebral infarction without residual deficits; Z79.899 Other long term (current) drug therapy; Z88.6 Allergy status to analgesic agent
CPT/HCPCS: 36415; 71045; 80048; 80061; 84439; 84443; 84484; 85025; 86705; 86709; 87340; 90935; 93005; 99291; A4606; J0360; J0885; J1650; J2270; J2405; J3490

== ENCOUNTER 2025-08-04 15:42 | Emergency (ER) | payer MEDICARE, MEDICAID ==
[~2025-08-04] VITALS: Ht 162.6 cm; Wt 91.0 kg
[~2025-08-04 15:42] MED LIST changes: +APIX5TAB PO; +ATOR40TA70 MT; -CLON1PAT41 TD; +HYDR50TA39 PO; -HYDR50TA40 MT; -LEVO250T74 MT; -LIP40 PO; +MECL-217 MT; +PANT40TA51 PO; -PROT40 MT
[2025-08-04] MEDS ORDERED: ACETAMINOPHEN 325MG TABLET PO ONE (16:00)
[2025-08-04 16:54] LABS: BASOPHILS % 1.4 % (0.0-2.0); EOSINOPHILS % 3.3 % (0.0-5.0); HEMATOCRIT. 30.5 % (36.0-48.0); HEMOGLOBIN. 9.9 g/dL (12.0-16.0); LYMPHOCYTES % 20.1 % (20.0-50.0); MEAN PLATELET VOLUME 9.7 fl (7.4-10.4); MONOCYTES % 7.8 % (2.0-8.0); NEUTROPHILS % 67.4 % (40.0-76.0); PLATELET 246 x1000/uL (130-400); RED BLOOD CELL COUNT 3.30 mill/uL (4.2-5.4); RED CELL DISTRIBUTION WIDTH 23.5 % (11.6-14.6)
[2025-08-04 16:55] LABS: ADD RBC MORPHOLOGY YES
[2025-08-04 17:07] LABS: CREATININE 4.4 mg/dL (0.6-1.0); UREA NITROGEN BLOOD 20 mg/dL (9-23)
[2025-08-04 17:08] LABS: PROTEIN TOTAL 7.5 g/dL (6.0-8.3)
[2025-08-04 17:09] LABS: ASPARTATE AMINOTRANSFERASE 40 IU/L (<34); BILIRUBIN DIRECT 0.4 mg/dL (<=3.0); BILIRUBIN TOTAL 0.9 mg/dL (0.1-1.0)
[2025-08-04] MEDS: ACETAMINOPHEN 325MG TABLET PO SCH (18:00)
[2025-08-04 19:03] LABS: PLATELET ESTIMATE NORMAL
[2025-08-04 23:10] VITALS: TEMP 36.7; O2SAT 97
[2025-08-04 23:30] VITALS: BP 174/56; PULSE 59; RESP 18; O2SAT 100
== END 2025-08-04 23:34 | disposition home or self-care (01) ==
LOC: ER 15:42
DX: R10.32 Left lower quadrant pain (principal); I12.0 Hypertensive chronic kidney disease with stage 5 chronic kidney disease or end stage renal disease; E11.22 Type 2 diabetes mellitus with diabetic chronic kidney disease; N18.6 End stage renal disease; Z79.01 Long term (current) use of anticoagulants; Z79.899 Other long term (current) drug therapy; Z88.6 Allergy status to analgesic agent; Z99.2 Dependence on renal dialysis
CPT/HCPCS: 36415; 74176; 80048; 80076; 85025; 93005; 99284